=== PATIENT | female | born 1935 | race Caucasian/White ===

== ENCOUNTER → 2018-02-06 | Day surgery (SDC) | payer MEDICARE, OTHER ==
[~2018-02-06] MED LIST: ALBUTEROL SULFATE 2.5 MG/3 ML NEBU. NEB PRN; AMLO10TA4 PO; ASPI81TA50 PO; ATEN50TA PO; ATROPINE 0.5 MG/5 ML DISP.SYRIN. IV PRN; CARV6.252 PO; CHOL100013 PO; CITA20TA9 PO; CRESTOR10 MG PO; DICL100G18 TP; INSU100C4 SQ; INSU100I13 SQ; IV RINGERS SOLUTION,LACTATED 1,000 ML IV SCH; LEVO125T5 PO; LIDOCAINE 2% PF Vial for OR 5 ML VIAL. ONE; NALOXONE 0.4 MG/ML VIAL. IV PRN; NATE60TA PO; ONDANSETRON PF 4 MG/2 ML VIAL. IV PRN; PANT40TA5 PO; PROPOFOL 20 ML IV ONE; SENN-79 PO; diphenhydrAMINE 50 MG/ML VIAL IV PRN
[2018-02-06 11:00] VITALS: BP 160/72
== END | disposition home or self-care (01) ==
LOC: SURG 08:10
PROVIDERS: ATTEND Internal Medicine Gastroenterology
DX: K44.9 Diaphragmatic hernia without obstruction or gangrene (principal); K29.70 Gastritis, unspecified, without bleeding; K22.8 Other specified diseases of esophagus; Z79.82 Long term (current) use of aspirin; Z79.899 Other long term (current) drug therapy; Z79.4 Long term (current) use of insulin; I10 Essential (primary) hypertension; E11.9 Type 2 diabetes mellitus without complications; E03.9 Hypothyroidism, unspecified; Z85.3 Personal history of malignant neoplasm of breast; E78.5 Hyperlipidemia, unspecified; M19.90 Unspecified osteoarthritis, unspecified site; G47.30 Sleep apnea, unspecified; Z90.49 Acquired absence of other specified parts of digestive tract; K21.9 Gastro-esophageal reflux disease without esophagitis; Z90.12 Acquired absence of left breast and nipple; I25.2 Old myocardial infarction
CPT/HCPCS: 43239; 82947; J2704; J7120; 43235; J2001

== ENCOUNTER 2018-07-22 17:07 | Inpatient (IN) | payer MEDICARE, OTHER ==
[~2018-07-22] VITALS: Ht 162.6 cm; Wt 62.2 kg
[~2018-07-22 17:07] MED LIST changes: -ALBUTEROL SULFATE 2.5 MG/3 ML NEBU. NEB PRN; -ATROPINE 0.5 MG/5 ML DISP.SYRIN. IV PRN; -CARV6.252 PO; +CARV6.2541 PO; -IV RINGERS SOLUTION,LACTATED 1,000 ML IV SCH; -LIDOCAINE 2% PF Vial for OR 5 ML VIAL. ONE; -NALOXONE 0.4 MG/ML VIAL. IV PRN; -ONDANSETRON PF 4 MG/2 ML VIAL. IV PRN; -PROPOFOL 20 ML IV ONE; -SENN-79 PO; +SENN-80 PO; -diphenhydrAMINE 50 MG/ML VIAL IV PRN
[2018-07-22] MEDS ORDERED: IV NORMAL SALINE 1,000ML 1,000 ML IV ONE (17:15)
[2018-07-22] MEDS ORDERED: ONDANSETRON PF 4 MG/2 ML VIAL. IV ONE (17:30)
[2018-07-22 17:50] LABS: BASO # 0.1 x10^3/uL (0.0-0.2); BASO % 1 % (0-3); EOS # 0.2 x10^3/uL (0.0-0.7); EOS % 2 % (0-3); HEMATOCRIT 41.9 % (36.0-47.0); HEMOGLOBIN 14.2 g/dL (12.0-15.5); LYMPH # 2.2 x10^3/uL (1.0-4.8); LYMPH % 34 % (24-48); MEAN CORPUSCULAR HEMOGLOBIN 31 pg (25-35); MEAN CORPUSCULAR HGB CONC 34 g/dL (31-37); MEAN CORPUSCULAR VOLUME 91 fL (79-100); MONO # 0.6 x10^3/uL (0.0-1.1); MONO % 10 % (0-9); NEUT # 3.5 x10^3uL (1.8-7.7); NEUT % 54 % (31-73); PLATELET COUNT 198 x10^3/uL (140-400); RED BLOOD COUNT 4.63 x10^6/uL (3.50-5.40); RED CELL DISTRIBUTION WIDTH 13.9 % (11.5-14.5); WHITE BLOOD COUNT 6.6 x10^3/uL (4.0-11.0)
[2018-07-22 17:54] LABS: ALBUMIN 3.4 g/dL (3.4-5.0); ALBUMIN/GLOBULIN RATIO 0.9 (1.0-1.7); CALCIUM 9.4 mg/dL (8.5-10.1); CREATININE 1.4 mg/dL (0.6-1.0); GFR 35.8; POTASSIUM 4.8 mmol/L (3.5-5.1); TOTAL BILIRUBIN 0.4 mg/dL (0.2-1.0); TOTAL PROTEIN 7.3 g/dL (6.4-8.2)
--- NOTE | 2018-07-22 18:28 | PHYS DOC ---
Past History Past Medical History: Anxiety, Depression, Diabetes, High Cholesterol, Hypertension, Hypothyroid Past Surgical History: Appendectomy, Cholecystectomy Alcohol Use: None Drug Use: None Adult General Chief Complaint Chief Complaint: WEAKNESS/GENERALIZED HPI HPI Patient is an 82-year-old female who presents with report of depression, not eating well and concerns regarding medication usage. Family indicates that she has been lying in bed for the most part 20 hours per day. They state that she does not want to get out of bed. Patient admits that she has been praying forgot to take her and she is really angry with got for not taking her. Review of Systems Review of Systems Constitutional: Denies fever or chills [] Respiratory: Denies cough or shortness of breath [] Cardiovascular: No additional information not addressed in HPI [] GI: Denies abdominal pain, nausea, vomiting or diarrhea [] Musculoskeletal: Complains of chronic back pain [] Psychiatric: Positive depression. All other systems were reviewed and found to be within normal limits, except as documented in this note. Current Medications Current Medications Current Medications Medications (Trade) Dose Ordered Sig/Jackie Start Time Stop Time Status Last Admin Dose Admin Ondansetron HCl (Zofran) 4 mg 1X ONCE 07/22/18 17:30 07/22/18 17:31 DC 07/22/18 17:43 4 MG Sodium Chloride 1,000 ml @ 1,000 mls/hr 1X ONCE 07/22/18 17:15 07/22/18 18:14 DC 07/22/18 17:43 1,000 MLS/HR Allergies Allergies Allergies Coded Allergies Type Severity Reaction Last Updated Verified No Known Drug Allergies 01/25/18 No Physical Exam Physical Exam Constitutional: Well developed, well nourished, no acute distress, non-toxic appearance. [] HENT: Normocephalic, atraumatic, bilateral external ears normal, oropharynx moist, no oral exudates, nose normal. [] Eyes: PERRLA, EOMI, conjunctiva normal. [] Neck: Normal range of motion, no tenderness, supple. [] Cardiovascular: Regular rate and rhythm[] Lungs & Thorax: Bilateral breath sounds clear to auscultation [] Abdomen: Bowel sounds normal, soft, no tenderness. [] Skin: Warm, dry, no erythema, no rash. [] Extremities: No tenderness, no cyanosis, no clubbing, ROM intact, no edema. [] Neurologic: Alert and oriented X 3, no focal deficits noted. [] Current Patient Data Vital Signs Vital Signs Date Time Temp Pulse Resp B/P (MAP) Pulse Ox O2 Delivery O2 Flow Rate FiO2 07/22/18 17:16 97.8 98 18 100 Room Air Lab Results Laboratory Tests Test 07/22/18 17:26 White Blood Count 6.6 x10^3/uL (4.0-11.0) Red Blood Count 4.63 x10^6/uL (3.50-5.40) Hemoglobin 14.2 g/dL (12.0-15.5) Hematocrit 41.9 % (36.0-47.0) Mean Corpuscular Volume 91 fL (79-100) Mean Corpuscular Hemoglobin 31 pg (25-35) Mean Corpuscular Hemoglobin Concent 34 g/dL (31-37) Red Cell Distribution Width 13.9 % (11.5-14.5) Platelet Count 198 x10^3/uL (140-400) Neutrophils (%) (Auto) 54 % (31-73) Lymphocytes (%) (Auto) 34 % (24-48) Monocytes (%) (Auto) 10 % (0-9) H Eosinophils (%) (Auto) 2 % (0-3) Basophils (%) (Auto) 1 % (0-3) Neutrophils # (Auto) 3.5 x10^3uL (1.8-7.7) Lymphocytes # (Auto) 2.2 x10^3/uL (1.0-4.8) Monocytes # (Auto) 0.6 x10^3/uL (0.0-1.1) Eosinophils # (Auto) 0.2 x10^3/uL (0.0-0.7) Basophils # (Auto) 0.1 x10^3/uL (0.0-0.2) Sodium Level 140 mmol/L (136-145) Potassium Level 4.8 mmol/L (3.5-5.1) Chloride Level 104 mmol/L (98-107) Carbon Dioxide Level 26 mmol/L (21-32) Anion Gap 10 (6-14) Blood Urea Nitrogen 29 mg/dL (7-20) H Creatinine 1.4 mg/dL (0.6-1.0) H Estimated GFR (Cockcroft-Gault) 35.8 BUN/Creatinine Ratio 21 (6-20) H Glucose Level 77 mg/dL (70-99) Calcium Level 9.4 mg/dL (8.5-10.1) Total Bilirubin 0.4 mg/dL (0.2-1.0) Aspartate Amino Transferase (AST) 34 U/L (15-37) Alanine Aminotransferase (ALT) 33 U/L (14-59) Alkaline Phosphatase 89 U/L (46-116) Total Protein 7.3 g/dL (6.4-8.2) Albumin 3.4 g/dL (3.4-5.0) Albumin/Globulin Ratio 0.9 (1.0-1.7) L EKG EKG [] Radiology/Procedures Radiology/Procedures [] Course & Med Decision Making Course & Med Decision Making Pertinent Labs and Imaging studies reviewed. (See chart for details) There was insufficient urine for lab UA. Urine that was supplied was dipped and demonstrates large leukocytes. Will treat as UTI. Dragon Disclaimer Dragon Disclaimer This electronic medical record was generated, in whole or in part, using a voice recognition dictation system. Departure Departure: Impression: Primary Impression: Dehydration Additional Impressions: UTI (urinary tract infection) Depression Disposition: ADMITTED INPATIENT Admitting Physician: Garfield Hemphill Condition: GOOD Referrals: GARFIELD HEMPIHLL MD (PCP) Problem Qualifiers Additional Impressions: UTI (urinary tract infection) Urinary tract infection type: site unspecified Hematuria presence: without hematuria Qualified Codes: N39.0 - Urinary tract infection, site not specified Depression Depression Type: unspecified Qualified Codes: F32.9 - Major depressive disorder, single episode, unspecified LINDA JAIN Jr. DO Jul 22, 2018 18:28
[2018-07-22] MEDS ORDERED: ACETAMINOPHEN 325 MG TABLET PO PRN (19:15)
[2018-07-22] MEDS ORDERED: ONDANSETRON PF 4 MG/2 ML VIAL. IV PRN (19:15)
[2018-07-22 19:27] LABS: BACTERIA,URINE FEW /HPF (0-FEW); BILIRUBIN,URINE NEG (NEG); CLARITY,URINE HAZY; COLOR,URINE STRAW; GLUCOSE,URINE NEG (NEG); NITRITE,URINE NEG (NEG); RBC,URINE 0 /HPF (0-2); SQUAMOUS EPITHELIAL CELL,UR OCC /LPF; UROBILINOGEN,URINE 0.2 mg/dL (0.2 mg/dL)
[2018-07-22] MEDS ORDERED: CARV6.253 PO (20:58)
[2018-07-22] MEDS ORDERED: TRAM1TAB4 PO (20:58)
[2018-07-22] MEDS ORDERED: DONE10TA7 PO (20:58)
[2018-07-22] MEDS ORDERED: ROSU10TA25 PO (20:58)
[2018-07-22] MEDS ORDERED: NATE60TA2 PO (20:58)
[2018-07-22] MEDS ORDERED: CITA20TA6 PO (20:58)
[2018-07-22] MEDS: IV NORMAL SALINE 1,000ML 1,000 ML IV SCH (21:33)
[2018-07-22 21:56] VITALS: BP 165/52
[2018-07-22] MEDS ORDERED: VITA400C36 PO (23:45)
[2018-07-22] MEDS ORDERED: OCUVITE ADULT1 EAC1 PO (23:45)
[2018-07-22] MEDS ORDERED: MULT-691 PO (23:45)
[2018-07-22] MEDS ORDERED: CALC200T3 PO (23:45)
[2018-07-22] MEDS ORDERED: CYAN10005 PO (23:45)
[2018-07-22] MEDS ORDERED: ASCO10002 PO (23:45)
[2018-07-22] MEDS ORDERED: SIME80TA14 PO (23:45)
[2018-07-22] MEDS ORDERED: OMEG-117 PO (23:45)
[2018-07-22] MEDS ORDERED: FERR325T14 PO (23:45)
[2018-07-23] MEDS: IV NORMAL SALINE 1,000ML 1,000 ML IV SCH ×2 (05:33→15:32)
[2018-07-23 05:41] VITALS: BP 167/76
[2018-07-23 06:47] LABS: BASO % 1 % (0-3); EOS # 0.2 x10^3/uL (0.0-0.7); EOS % 3 % (0-3); HEMATOCRIT 39.5 % (36.0-47.0); HEMOGLOBIN 13.3 g/dL (12.0-15.5); LYMPH % 32 % (24-48); MEAN CORPUSCULAR HEMOGLOBIN 31 pg (25-35); MEAN CORPUSCULAR HGB CONC 34 g/dL (31-37); MEAN CORPUSCULAR VOLUME 91 fL (79-100); MONO # 0.6 x10^3/uL (0.0-1.1); MONO % 10 % (0-9); NEUT # 3.5 x10^3uL (1.8-7.7); NEUT % 54 % (31-73); PLATELET COUNT 178 x10^3/uL (140-400); RED BLOOD COUNT 4.33 x10^6/uL (3.50-5.40); RED CELL DISTRIBUTION WIDTH 14.3 % (11.5-14.5); WHITE BLOOD COUNT 6.4 x10^3/uL (4.0-11.0)
[2018-07-23 06:57] LABS: CALCIUM 8.6 mg/dL (8.5-10.1); CREATININE 1.3 mg/dL (0.6-1.0); POTASSIUM 4.3 mmol/L (3.5-5.1)
[2018-07-23] MEDS ORDERED: CALCIUM CARBONATE 500 MG TAB.CHEW PO PRN (09:00)
[2018-07-23] MEDS ORDERED: SIMETHICONE 80 MG TAB.CHEW PO PRN (09:00)
[2018-07-23] MEDS ORDERED: [UNRECOGNIZED DRUG - OTHER] PO SCH (09:00)
[2018-07-23] MEDS ORDERED: NON FORMULARY ITEM (Carvedilol 1 TAB) PO SCH (09:00)
[2018-07-23] MEDS ORDERED: NON FORMULARY ITEM (Tramadol Hcl/Acetaminophen (Tramadol-Acetaminophn 37.5-325) 1 TAB) PO PRN (09:00)
[2018-07-23 10:51] VITALS: BP 154/77
[2018-07-23] MEDS: REPAGLINIDE 0.5 MG TABLET PO SCH ×2 (11:30→17:22)
[2018-07-23] MEDS: FERROUS SULFATE 325 MG TABLET. PO SCH (13:12)
[2018-07-23] MEDS: CYANOCOBALAMIN (VITAMIN B-12) 1,000 MCG TABLET. PO SCH (13:12)
[2018-07-23] MEDS: CARVEDILOL 6.25 MG TABLET PO SCH ×2 (14:31→21:08)
[2018-07-23 16:21] VITALS: BP 170/68
--- NOTE | 2018-07-23 18:06 | HP ---
ADMIT DATE: 07/22/2018 HISTORY OF PRESENT ILLNESS: The patient is a very pleasant 82-year-old female came in through the Emergency Room with severe depression, not eating well. Concern regarding medication. The patient just lies in bed for 20 hours a day, but she has been having a marked agitation at times. No hallucinations, but is feeling extremely depressed and worn out. PAST MEDICAL HISTORY: She has a history of dementia, hypercholesterolemia, hypertension, type 2 diabetes, incontinence, multiple urinary tract infections, hypothyroidism, anemia. IMMUNIZATIONS: Up-to-date, influenza and pneumococcal. ALLERGIES: No known allergies. MEDICATIONS: Reconcile of her home medications were performed and they were reviewed including Aricept 10 mg daily, ferrous sulfate, Crestor 10, omega 3, carvedilol 6.25, Norvasc, aspirin, tramadol, Celexa 20, calcium, simethicone and Protonix and insulin on a sliding scale. CODE STATUS: She is a full code. SOCIAL HISTORY: Denies smoking, alcohol or drug use. Lives at home with her . REVIEW OF SYSTEMS: The patient denies any recent weight loss, weight gain, although she does look much thinner. She is not eating very well. She is very dehydrated. Denies chest pain, shortness of breath. Denies abdominal pain. Denies any melena, hematochezia, or hematemesis. Just feels very depressed, lethargic, generalized weakness noted throughout. The patient will be admitted for further evaluation and treatment on those medical issues. We will consult with Psychiatry. Her labs are basically unremarkable. Sugars are reasonable in the 130s. Creatinine is slightly elevated. Urine, 5-10 whites and we will go ahead and urine culture pending. Psychiatric consult pending. BOBY WYATT MD DR: JIHAN/sabrina JOB#: [id number] / [id number]
--- NOTE | 2018-07-23 19:12 | PDOC ---
Exam Note: Kristofer Note: Please also refer to the separate dictated note~for this date of service dictated separately.~Patient seen individually. Discussed the patient with Nursing staff reviewed the chart.~Reviewed interim history and current functioning. Reviewed vital signs,~Labs/ Radiology~and current medications noted below. Continue current treatment with the changes noted in the dictated addendum note Assessment: Vital Signs: Vital Signs Date Time Temp Pulse Resp B/P (MAP) Pulse Ox O2 Delivery O2 Flow Rate FiO2 07/23/18 16:21 97.9 69 18 170/68 (102) 97 Room Air I&O Intake and Output 07/23/18 07:00 Intake Total 2160 ml Balance 2160 ml Intake Oral 180 ml IV Total 1980 ml # Voids 4 Labs: Laboratory Tests Test 07/22/18 21:42 07/23/18 06:17 07/23/18 07:21 07/23/18 11:39 Glucose (Fingerstick) 101 mg/dL (70-99) H 136 mg/dL (70-99) H 238 mg/dL (70-99) H White Blood Count 6.4 x10^3/uL (4.0-11.0) Red Blood Count 4.33 x10^6/uL (3.50-5.40) Hemoglobin 13.3 g/dL (12.0-15.5) Hematocrit 39.5 % (36.0-47.0) Mean Corpuscular Volume 91 fL (79-100) Mean Corpuscular Hemoglobin 31 pg (25-35) Mean Corpuscular Hemoglobin Concent 34 g/dL (31-37) Red Cell Distribution Width 14.3 % (11.5-14.5) Platelet Count 178 x10^3/uL (140-400) Neutrophils (%) (Auto) 54 % (31-73) Lymphocytes (%) (Auto) 32 % (24-48) Monocytes (%) (Auto) 10 % (0-9) H Eosinophils (%) (Auto) 3 % (0-3) Basophils (%) (Auto) 1 % (0-3) Neutrophils # (Auto) 3.5 x10^3uL (1.8-7.7) Lymphocytes # (Auto) 2.0 x10^3/uL (1.0-4.8) Monocytes # (Auto) 0.6 x10^3/uL (0.0-1.1) Eosinophils # (Auto) 0.2 x10^3/uL (0.0-0.7) Basophils # (Auto) 0.0 x10^3/uL (0.0-0.2) Sodium Level 143 mmol/L (136-145) Potassium Level 4.3 mmol/L (3.5-5.1) Chloride Level 107 mmol/L (98-107) Carbon Dioxide Level 29 mmol/L (21-32) Anion Gap 7 (6-14) Blood Urea Nitrogen 26 mg/dL (7-20) H Creatinine 1.3 mg/dL (0.6-1.0) H Estimated GFR (Cockcroft-Gault) 39.0 Glucose Level 150 mg/dL (70-99) H Calcium Level 8.6 mg/dL (8.5-10.1) Test 07/23/18 16:54 Glucose (Fingerstick) 250 mg/dL (70-99) H Current Medications: Meds: Current Medications Sodium Chloride 1,000 ml @ 1,000 mls/hr 1X ONCE IV Last administered on at 17:43; Start 07/22/18 at 17:15; Stop 07/22/18 at 18:14; Status DC Ondansetron HCl (Zofran) 4 mg 1X ONCE IV Last administered on 07/22/18at 17:43 ; Start 07/22/18 at 17:30; Stop 07/22/18 at 17:31; Status DC Ondansetron HCl (Zofran) 4 mg PRN Q4HRS PRN IV NAUSEA/VOMITING; Start 07/22/18 at 19:15; Stop 07/23/18 at 19:14 Sodium Chloride 1,000 ml @ 100 mls/hr Q10H IV Last administered on 07/23/18at 15:32; Start 07/22/18 at 19:06; Stop 07/23/18 at 19:05; Status DC Acetaminophen (Tylenol) 650 mg PRN Q4HRS PRN PO FEVER; Start 07/22/18 at 19:15 ; Stop 07/23/18 at 19:14 Calcium Carbonate/ Glycine (Tums) 250 mg BIDAFTMEAL PRN PRN PO GAS / BLOATING; Start 07/23/18 at 09:00 Citalopram Hydrobromide (CeleXA) 20 mg HS PO ; Start 07/23/18 at 21:00 Cyanocobalamin (Vitamin B-12) 1,000 mcg DAILY PO Last administered on at 13:12; Start 07/23/18 at 09:00 Ferrous Sulfate (Feosol) 325 mg DAILY PO Last administered on 07/23/18at 13:12; Start 07/23/18 at 09:00 Insulin Glargine (Lantus) 30 units QHS SQ ; Start 07/23/18 at 21:00 Simethicone (Gas-X) 80 mg PRN BID PRN PO GAS / BLOATING; Start 07/23/18 at 09: 00 Amlodipine Besylate (Norvasc) 10 mg DAILY PO ; Start 07/24/18 at 09:00 Ascorbic Acid (Vitamin C) 1,000 mg DAILY PO ; Start 07/24/18 at 09:00 Aspirin (Children'S Aspirin) 81 mg DAILYWBKFT PO ; Start 07/24/18 at 08:00 Non-Formulary Medication (C,E,Zinc,Copper 24/Om3/Lut/Fely (Ocuvite Adult 50 Plus Softgel)) 1 each DAILY PO ; Start 07/23/18 at 09:00; Stop 07/23/18 at 09:21; Status DC Non-Formulary Medication (Carvedilol ) 1 tab TID PO ; Start 07/23/18 at 09:00; Stop 07/23/18 at 13:35; Status DC Vitamin D (Vitamin D3) 1,000 unit DAILY PO ; Start 07/24/18 at 09:00 Donepezil HCl (Aricept) 10 mg DAILY PO ; Start 07/24/18 at 09:00 Levothyroxine Sodium (Synthroid) 125 mcg DAILY06 PO ; Start 07/24/18 at 06:00 Multivitamins/ Minerals (I-Brandi) 1 tab DAILY PO ; Start 07/24/18 at 09:00 Repaglinide (Prandin) 0.5 mg TIDAC PO Last administered on 07/23/18at 17:22; Start 07/23/18 at 11:30 Fish Oil (Fish Oil) 1,000 mg DAILY PO ; Start 07/24/18 at 09:00 Pantoprazole Sodium (Protonix) 40 mg DAILYAC PO ; Start 07/24/18 at 07:30 Atorvastatin Calcium (Lipitor) 40 mg QHS PO ; Start 07/23/18 at 21:00 Non-Formulary Medication (Tramadol Hcl/ Acetaminophen (Tramadol-Acetaminophn 37.5-325)) 1 tab Q6HRS PRN PO PAIN; Start 07/23/18 at 09:00; Stop 07/23/18 at 09:21; Status DC Vitamin E 400 unit DAILY PO ; Start 07/24/18 at 09:00 Carvedilol (Coreg) 6.25 mg TID PO Last administered on 07/23/18at 14:31; Start 07/23/18 at 14:00 Active Scripts Active Reported Vitamin B-12 (Cyanocobalamin (Vitamin B-12)) 1,000 Mcg Tablet 1 Tab PO DAILY Ocuvite Adult 50 Plus Softgel (C,E,Zinc,Copper 24/Om3/Lut/Fely) 1 Each Capsule 1 Each PO DAILY Centrum Women Tablet (Multivitamin/Iron/Folic Acid) 1 Each Tablet 1 Each PO DAILY Ferrous Sulfate 325 Mg Tablet 1 Tab PO DAILY Tums (Calcium Carbonate) 200 Mg Tab.chew 200 Mg PO BIDAFTMEAL PRN PRN Fish Oil 1,200 mg Softgel ([place]-3/Dha/Epa/Fish Oil) 1 Each Capsule.dr 1 Each PO DAILY Vitamin C (Ascorbic Acid) 1,000 Mg Tablet 1,000 Mg PO DAILY Vitamin E (Vitamin E Mixed) 400 Unit Capsule 400 Unit PO DAILY Simethicone 80 Mg Tab.chew 80 Mg PO BIDACBL PRN Tramadol-Acetaminophn 37.5-325 (Tramadol Hcl/Acetaminophen) 1 Each Tablet 1 Tab PO Q6HRS PRN Carvedilol 6.25 Mg Tablet 1 Tab PO TID Donepezil Hcl 10 Mg Tablet 10 Mg PO DAILY Celexa (Citalopram Hydrobromide) 20 Mg Tablet 1 Tab PO HS Novolog (Insulin Aspart) 100 Unit/1 Ml Cartridge 1 Unit SQ Pantoprazole Sodium 40 Mg Tablet. 1 Tab PO DAILY Levothyroxine Sodium 125 Mcg Tablet 1 Tab PO DAILY Starlix (Nateglinide) 60 Mg Tablet 1 Tab PO TIDAC Crestor (Rosuvastatin Calcium) 10 Mg Tablet 1 Tab PO HS Norvasc (Amlodipine Besylate) 10 Mg Tablet 1 Tab PO DAILY Lantus Solostar (Insulin Glargine,Hum.rec.anlog) 100 Unit/1 Ml Insuln.pen 30 Unit SQ QHS Vitamin D (Cholecalciferol (Vitamin D3)) 1,000 Unit Capsule 1 Cap PO DAILY Aspir-Low (Aspirin) 81 Mg Tablet. 1 Tab PO DAILY I have reviewed the current psychotropics carefully including drug interactions. Risk benefit ratio favors no change other than as noted in my dictated progress note. Diagnosis: Problems: (1) UTI (urinary tract infection) (2) Depression (3) Dehydration BESS MONIQUE MD Jul 23, 2018 19:12
[2018-07-23 19:21] VITALS: BP 164/66
[2018-07-23] MEDS: CITALOPRAM 20 MG TABLET. PO SCH (21:08)
[2018-07-23] MEDS: ATORVASTATIN CALCIUM 20 MG TABLET PO SCH (21:08)
[2018-07-23] MEDS: INSULIN GLARGINE 300 UNITS/3 ML INSULN.PEN. SQ SCH (21:21)
[2018-07-23 23:04] VITALS: BP 183/69
[2018-07-24 05:04] VITALS: BP 184/72
[2018-07-24] MEDS: LEVOTHYROXINE 125 MCG TABLET PO SCH (05:44)
[2018-07-24] MEDS: ASPIRIN 81 MG TAB.CHEW PO SCH (08:01)
[2018-07-24] MEDS: DONEPEZIL HCL 10 MG TABLET PO SCH ×2 (08:01→09:28)
[2018-07-24] MEDS: CYANOCOBALAMIN (VITAMIN B-12) 1,000 MCG TABLET. PO SCH (08:01)
[2018-07-24] MEDS: ASCORBIC ACID 500 MG TABLET PO SCH (08:01)
[2018-07-24] MEDS: OMEGA-3 FATTY ACIDS/FISH OIL 1,000 MG CAPSULE. PO SCH (08:01)
[2018-07-24] MEDS: amLODIPine BESYLATE 10 MG TABLET PO SCH (08:02)
[2018-07-24] MEDS: CHOLECALCIFEROL (VITAMIN D3) 1,000 UNIT TABLET PO SCH (08:02)
[2018-07-24] MEDS: MULTIVITAMIN I-VITE TABLET. PO SCH (08:02)
[2018-07-24] MEDS: FERROUS SULFATE 325 MG TABLET. PO SCH (08:02)
[2018-07-24] MEDS: PANTOPRAZOLE 40 MG TABLET. PO SCH (08:02)
[2018-07-24] MEDS: VITAMIN E. 400 UNIT CAPSULE. PO SCH (08:02)
[2018-07-24] MEDS: CARVEDILOL 6.25 MG TABLET PO SCH ×3 (08:02→20:27)
[2018-07-24] MEDS: REPAGLINIDE 0.5 MG TABLET PO SCH ×3 (08:03→16:22)
[2018-07-24 09:25] VITALS: BP 157/63
[2018-07-24] MEDS: MODAFINIL 100 MG TABLET PO SCH (11:00)
[2018-07-24 15:54] VITALS: BP 148/65
[2018-07-24 19:05] VITALS: BP 161/52
[2018-07-24] MEDS: CITALOPRAM 20 MG TABLET. PO SCH (20:27)
[2018-07-24] MEDS: ATORVASTATIN CALCIUM 20 MG TABLET PO SCH (20:27)
[2018-07-24] MEDS: INSULIN GLARGINE 300 UNITS/3 ML INSULN.PEN. SQ SCH (20:33)
--- NOTE | 2018-07-24 20:36 | CONS ---
DATE OF CONSULTATION: 07/23/2018 PSYCHIATRIC CONSULTATION This late entry 07/23/2018 covers elements not covered in my initial note. The patient was seen individually on the evening of 07/23/2018 in room 123. Discussed with nursing staff, reviewed the chart. IDENTIFYING DATA: The patient is an 82-year-old female referred by Dr. Hemphill on account of short term memory deficits, confusion within the context of her UTI and dehydration. The patient was seen individually on the evening of 07/23/2018. CHIEF COMPLAINT: "Yes, I am getting more confused. If it is because of the infection when will it get better?" HISTORY OF PRESENT ILLNESS: The patient has a history of short term memory deficits and according to records from Dr. Hemphill has a history of dementia. She has also had some appetite disturbance, significant dehydration, worsening confusion, and history of recurrent urinary tract infections. No clear symptoms of bipolar disorder, psychotic symptoms, suicidal or homicidal ideation. The patient has been increasingly depressed, somewhat withdrawn. PAST PSYCHIATRIC HISTORY: As above. MEDICAL HISTORY: Hypercholesterolemia, hypertension, dehydration, type 2 diabetes mellitus, incontinence, recurrent UTIs, hypothyroidism, anemia. DRUG ALLERGIES: Negative. CODE STATUS: FULL CODE. FAMILY HISTORY: Noncontributory. SOCIAL HISTORY: No alcohol or drug abuse history is noted. MENTAL STATUS EXAMINATION: The patient was seen individually. She is oriented to herself, situation, knew it was 2018, knew that the month was June, felt the date was 07/21/2018. She is anxious, restless, lying in bed on IV fluids. Speech is coherent, abstraction fair, computation impaired, short term memory is impaired. Attention span short. Language function intact. Mood and affect somewhat anxious, labile. LABORATORY DATA: Reviewed. IMPRESSION: Major neurocognitive disorder, Alzheimer, vascular with depression; anxiety disorder, unspecified; urinary tract infection; dehydration. RECOMMENDATIONS: From a psychiatric standpoint, the patient is on Provigil 100 mg daily, Aricept 10 mg a day, Celexa 20 mg p.o. at bedtime. BUN and creatinine is improving, but she has been hydrated. From a psychiatric standpoint, I would not recommend any changes yet, but wait to see how she does cognitively once the dehydration is resolved. Given her memory deficits, we could consider adding Namenda, but more than likely her dementia is consequent to vascular etiology and is unlikely to benefit from cholinesterase inhibitors, on Namenda for Alzheimer's. If mood symptoms persist despite resolution of the medical condition, perhaps Celexa could be changed to Cymbalta 20 mg a day increasing gradually to 60 mg a day as tolerated. I will leave these as suggestions for Dr. Hemphill to consider. Dr. Hemphill, thank you for the opportunity to participate in your patient's care. We will follow with you. BESS MONIQUE MD DR: KACEY/nts JOB#: [id number] / [id number]
--- NOTE | 2018-07-24 22:17 | PDOC ---
Exam Note: Kristofer Note: Please also refer to the separate dictated note~for this date of service dictated separately.~Patient seen individually. Discussed the patient with Nursing staff reviewed the chart.~Reviewed interim history and current functioning. Reviewed vital signs,~Labs/ Radiology~and current medications noted below. Continue current treatment with the changes noted in the dictated addendum note Assessment: Vital Signs: Vital Signs Date Time Temp Pulse Resp B/P (MAP) Pulse Ox O2 Delivery O2 Flow Rate FiO2 07/24/18 20:27 68 148/65 07/24/18 20:00 Room Air 07/24/18 19:05 97.9 96 07/24/18 15:54 20 I&O Intake and Output 07/24/18 06:59 Intake Total 450 ml Balance 450 ml Intake Oral 450 ml # Voids 2 Labs: Laboratory Tests Test 07/24/18 08:12 07/24/18 09:15 07/24/18 11:52 07/24/18 17:00 Glucose (Fingerstick) 48 mg/dL (70-99) L 163 mg/dL (70-99) H 237 mg/dL (70-99) H 232 mg/dL (70-99) H Test 07/24/18 20:26 Glucose (Fingerstick) 273 mg/dL (70-99) H Current Medications: Meds: Current Medications Sodium Chloride 1,000 ml @ 1,000 mls/hr 1X ONCE IV Last administered on at 17:43; Start 07/22/18 at 17:15; Stop 07/22/18 at 18:14; Status DC Ondansetron HCl (Zofran) 4 mg 1X ONCE IV Last administered on 07/22/18at 17:43 ; Start 07/22/18 at 17:30; Stop 07/22/18 at 17:31; Status DC Ondansetron HCl (Zofran) 4 mg PRN Q4HRS PRN IV NAUSEA/VOMITING; Start 07/22/18 at 19:15; Stop 07/23/18 at 19:14; Status DC Sodium Chloride 1,000 ml @ 100 mls/hr Q10H IV Last administered on 07/23/18at 15:32; Start 07/22/18 at 19:06; Stop 07/23/18 at 19:05; Status DC Acetaminophen (Tylenol) 650 mg PRN Q4HRS PRN PO FEVER; Start 07/22/18 at 19:15 ; Stop 07/23/18 at 19:14; Status DC Calcium Carbonate/ Glycine (Tums) 250 mg BIDAFTMEAL PRN PRN PO GAS / BLOATING; Start 07/23/18 at 09:00 Citalopram Hydrobromide (CeleXA) 20 mg HS PO Last administered on 07/24/18at 20: 27; Start 07/23/18 at 21:00 Cyanocobalamin (Vitamin B-12) 1,000 mcg DAILY PO Last administered on 08:01; Start 07/23/18 at 09:00 Ferrous Sulfate (Feosol) 325 mg DAILY PO Last administered on 07/24/18at 08:02; Start 07/23/18 at 09:00 Insulin Glargine (Lantus) 30 units QHS SQ Last administered on 07/24/18at 20:33 ; Start 07/23/18 at 21:00 Simethicone (Gas-X) 80 mg PRN BID PRN PO GAS / BLOATING; Start 07/23/18 at 09: 00 Amlodipine Besylate (Norvasc) 10 mg DAILY PO Last administered on 07/24/18 08: 02; Start 07/24/18 at 09:00 Ascorbic Acid (Vitamin C) 1,000 mg DAILY PO Last administered on 07/24/18 08: 01; Start 07/24/18 at 09:00 Aspirin (Children'S Aspirin) 81 mg DAILYWBKFT PO Last administered on at 08:01; Start 07/24/18 at 08:00 Non-Formulary Medication (C,E,Zinc,Copper 24/Om3/Lut/Fely (Ocuvite Adult 50 Plus Softgel)) 1 each DAILY PO ; Start 07/23/18 at 09:00; Stop 07/23/18 at 09:21; Status DC Non-Formulary Medication (Carvedilol ) 1 tab TID PO ; Start 07/23/18 at 09:00; Stop 07/23/18 at 13:35; Status DC Vitamin D (Vitamin D3) 1,000 unit DAILY PO Last administered on 07/24/18at 08:02 ; Start 07/24/18 at 09:00 Donepezil HCl (Aricept) 10 mg DAILY PO Last administered on 07/24/18 09:28; Start 07/24/18 at 09:00 Levothyroxine Sodium (Synthroid) 125 mcg DAILY06 PO Last administered on 05:44; Start 07/24/18 at 06:00 Multivitamins/ Minerals (I-Brandi) 1 tab DAILY PO Last administered on 07/24/18 08:02; Start 07/24/18 at 09:00 Repaglinide (Prandin) 0.5 mg TIDAC PO Last administered on 07/24/18 16:22; Start 07/23/18 at 11:30 Fish Oil (Fish Oil) 1,000 mg DAILY PO Last administered on 07/24/18 08:01; Start 07/24/18 at 09:00 Pantoprazole Sodium (Protonix) 40 mg DAILYAC PO Last administered on 07/24/18 08:02; Start 07/24/18 at 07:30 Atorvastatin Calcium (Lipitor) 40 mg QHS PO Last administered on 07/24/18 20: 27; Start 07/23/18 at 21:00 Non-Formulary Medication (Tramadol Hcl/ Acetaminophen (Tramadol-Acetaminophn 37.5-325)) 1 tab Q6HRS PRN PO PAIN; Start 07/23/18 at 09:00; Stop 07/23/18 at 09:21; Status DC Vitamin E 400 unit DAILY PO Last administered on 07/24/18 08:02; Start at 09:00 Carvedilol (Coreg) 6.25 mg TID PO Last administered on 07/24/18 20:27; Start 07/23/18 at 14:00 Modafinil (Provigil) 100 mg DAILY PO Last administered on 07/24/18 11:00; Start 07/24/18 at 10:30 Active Scripts Active Reported Vitamin B-12 (Cyanocobalamin (Vitamin B-12)) 1,000 Mcg Tablet 1 Tab PO DAILY Ocuvite Adult 50 Plus Softgel (C,E,Zinc,Copper 24/Om3/Lut/Fely) 1 Each Capsule 1 Each PO DAILY Centrum Women Tablet (Multivitamin/Iron/Folic Acid) 1 Each Tablet 1 Each PO DAILY Ferrous Sulfate 325 Mg Tablet 1 Tab PO DAILY Tums (Calcium Carbonate) 200 Mg Tab.chew 200 Mg PO BIDAFTMEAL PRN PRN Fish Oil 1,200 mg Softgel ([place]-3/Dha/Epa/Fish Oil) 1 Each Capsule.dr 1 Each PO DAILY Vitamin C (Ascorbic Acid) 1,000 Mg Tablet 1,000 Mg PO DAILY Vitamin E (Vitamin E Mixed) 400 Unit Capsule 400 Unit PO DAILY Simethicone 80 Mg Tab.chew 80 Mg PO BIDACBL PRN Tramadol-Acetaminophn 37.5-325 (Tramadol Hcl/Acetaminophen) 1 Each Tablet 1 Tab PO Q6HRS PRN Carvedilol 6.25 Mg Tablet 1 Tab PO TID Donepezil Hcl 10 Mg Tablet 10 Mg PO DAILY Celexa (Citalopram Hydrobromide) 20 Mg Tablet 1 Tab PO HS Novolog (Insulin Aspart) 100 Unit/1 Ml Cartridge 1 Unit SQ Pantoprazole Sodium 40 Mg Tablet.dr 1 Tab PO DAILY Levothyroxine Sodium 125 Mcg Tablet 1 Tab PO DAILY Starlix (Nateglinide) 60 Mg Tablet 1 Tab PO TIDAC Crestor (Rosuvastatin Calcium) 10 Mg Tablet 1 Tab PO HS Norvasc (Amlodipine Besylate) 10 Mg Tablet 1 Tab PO DAILY Lantus Solostar (Insulin Glargine,Hum.rec.anlog) 100 Unit/1 Ml Insuln.pen 30 Unit SQ QHS Vitamin D (Cholecalciferol (Vitamin D3)) 1,000 Unit Capsule 1 Cap PO DAILY Aspir-Low (Aspirin) 81 Mg Tablet. 1 Tab PO DAILY I have reviewed the current psychotropics carefully including drug interactions. Risk benefit ratio favors no change other than as noted in my dictated progress note. Diagnosis: Problems: (1) Dehydration (2) Depression (3) UTI (urinary tract infection) BESS MONIQUE MD Jul 24, 2018 22:16
[2018-07-24 22:45] VITALS: BP 179/71
--- NOTE | 2018-07-24 23:04 | PN ---
DATE: SUBJECTIVE: An 82-year-old female in with change in mental status, has been having extreme lethargy, depression and the like. As a result of this, the patient has been given IV fluids. It looks like she was somewhat dehydrated, may have a urinary tract infection along with her change in mental status. The patient begin receiving IV fluids, adjusting her blood sugar medications, seems to be doing a little better today, he is markedly improved. Dr. Vera has reviewed the patient, made timely suggestions about her care and we are making adjustments on her as indicated. PHYSICAL EXAMINATION: VITAL SIGNS: Otherwise, the patient's blood pressure is 148/65, respiratory rate 20, pulse 68, afebrile. GENERAL: The patient is alert and oriented. LUNGS: Diminished throughout, poor movement of air. CARDIOVASCULAR: Regular sinus rhythm. ABDOMEN: The patient's abdomen is soft, nontender, no rebounding or guarding. Positive bowel sounds. NEUROLOGIC: The patient is alert, slightly confused, but that is baseline for this patient. Continue to monitor her accordingly and make further evaluation. Continue with PT, OT. IMPRESSION: Change in mental status, acute encephalopathy, possibly metabolic, dehydration. PLAN: Make further evaluation on her as indicated and we will PT, OT that helps her keep mobilized and make further evaluation on her as indicated. BOBY WYATT MD DR: JIHAN/sabrina JOB#: [id number] / [id number]
[2018-07-25 05:06] VITALS: BP 157/76
[2018-07-25] MEDS: LEVOTHYROXINE 125 MCG TABLET PO SCH (05:34)
[2018-07-25] MEDS: DONEPEZIL HCL 10 MG TABLET PO SCH (07:00)
[2018-07-25] MEDS: amLODIPine BESYLATE 10 MG TABLET PO SCH (07:00)
[2018-07-25] MEDS: MULTIVITAMIN I-VITE TABLET. PO SCH (07:00)
[2018-07-25] MEDS: ASCORBIC ACID 500 MG TABLET PO SCH (07:00)
[2018-07-25] MEDS: CYANOCOBALAMIN (VITAMIN B-12) 1,000 MCG TABLET. PO SCH (07:01)
[2018-07-25] MEDS: CARVEDILOL 6.25 MG TABLET PO SCH (07:01)
[2018-07-25] MEDS: PANTOPRAZOLE 40 MG TABLET. PO SCH (07:01)
[2018-07-25] MEDS: ASPIRIN 81 MG TAB.CHEW PO SCH (07:01)
[2018-07-25] MEDS: OMEGA-3 FATTY ACIDS/FISH OIL 1,000 MG CAPSULE. PO SCH (07:01)
[2018-07-25] MEDS: FERROUS SULFATE 325 MG TABLET. PO SCH (07:01)
[2018-07-25] MEDS: CHOLECALCIFEROL (VITAMIN D3) 1,000 UNIT TABLET PO SCH (07:02)
[2018-07-25] MEDS: REPAGLINIDE 0.5 MG TABLET PO SCH ×2 (07:02→11:30)
[2018-07-25] MEDS: VITAMIN E. 400 UNIT CAPSULE. PO SCH (07:02)
[2018-07-25] MEDS: MODAFINIL 100 MG TABLET PO SCH (07:02)
[2018-07-25] MEDS ORDERED: IV NORMAL SALINE 1,000ML 1,000 ML IV SCH (08:15)
[2018-07-25 09:58] VITALS: BP 128/61
[2018-07-25 11:02] LABS: BASO % 0 % (0-3); EOS # 0.3 x10^3/uL (0.0-0.7); EOS % 3 % (0-3); HEMOGLOBIN 13.9 g/dL (12.0-15.5); LYMPH # 1.8 x10^3/uL (1.0-4.8); LYMPH % 16 % (24-48); MEAN CORPUSCULAR HEMOGLOBIN 30 pg (25-35); MEAN CORPUSCULAR HGB CONC 33 g/dL (31-37); MEAN CORPUSCULAR VOLUME 92 fL (79-100); MONO # 1.1 x10^3/uL (0.0-1.1); MONO % 10 % (0-9); NEUT % 72 % (31-73); PLATELET COUNT 211 x10^3/uL (140-400); RED BLOOD COUNT 4.57 x10^6/uL (3.50-5.40); RED CELL DISTRIBUTION WIDTH 14.4 % (11.5-14.5); WHITE BLOOD COUNT 11.1 x10^3/uL (4.0-11.0)
[2018-07-25] MEDS ORDERED: MODA100T2 PO (11:08)
[2018-07-25 11:15] LABS: ALBUMIN 3.3 g/dL (3.4-5.0); ALBUMIN/GLOBULIN RATIO 0.9 (1.0-1.7); CALCIUM 8.5 mg/dL (8.5-10.1); CREATININE 1.4 mg/dL (0.6-1.0); GFR 35.8; TOTAL BILIRUBIN 0.4 mg/dL (0.2-1.0)
--- NOTE | 2018-07-25 22:04 | PN ---
DATE: 07/24/2018 PSYCHIATRIC PROGRESS NOTE This late entry 07/24/2018 covers elements not covered in my initial note. SUBJECTIVE: I met with the patient in her room and discussed with nursing staff. Overall, she is doing better, less confused, little more oriented, remembered what we discussed at the visit the previous day. REVIEW OF SYSTEMS: Still complains of tiredness. No CV, , pulmonary system symptoms on review. MENTAL STATUS EXAM: Oriented to herself and situation. Speech has some latency, coherent. Abstraction fair, computation impaired, language function intact. Mood and affect is improved, short term memory is impaired. IMPRESSION: Unchanged from initial note. PLAN: No change from initial note. MAN Kesha MONIQUE MD DR: KACEY/sabrina JOB#: [id number] / [id number]
--- NOTE | 2018-08-15 12:31 | DS ---
DATE OF DISCHARGE: 07/25/2018 HOSPITAL COURSE: An 82-year-old female in was admitted severe depression, not eating well, became increasingly dehydrated. The patient was brought in and monitored. She was given IV fluids to a significant degree to help her get rehydrated. The patient's labs were pretty much nonconclusive. She is a diabetic and her blood sugars were in the low 200s. Her urine was evaluated and a culture was completed on her, which was unremarkable. The patient made excellent Recovery. She was seen by Dr. Vera, geriatric psychiatrist. He made timely suggestions about her care and she made good progress and was discharged home. IMPRESSION: Change in mental status, dehydration, type 2 diabetes, poorly controlled. The patient will be followed up as an outpatient and make further evaluation on her as indicated. At that time, she will be on a diabetic diet, decreased activity, and make further evaluation as indicated. BOBY WYATT MD DR: JIHAN/sabrina JOB#: [id number] / [id number]
== END 2018-07-25 14:31 | disposition home health service (06) | DRG 689 ==
LOC: ER 17:07 → 1 SOUTH 19:08
PROVIDERS: ADMIT Family Medicine; ATTEND Family Medicine
DX: N39.0 Urinary tract infection, site not specified (principal); G93.41 Metabolic encephalopathy; E86.0 Dehydration; F32.9 Major depressive disorder, single episode, unspecified; G30.9 Alzheimer's disease, unspecified; F41.9 Anxiety disorder, unspecified; E03.9 Hypothyroidism, unspecified; E11.9 Type 2 diabetes mellitus without complications; E78.00 Pure hypercholesterolemia, unspecified; F01.50 Vascular dementia, unspecified severity, without behavioral disturbance, psychotic disturbance, mood disturbance, and anxiety; F02.80 Dementia in other diseases classified elsewhere, unspecified severity, without behavioral disturbance, psychotic disturbance, mood disturbance, and anxiety; I10 Essential (primary) hypertension; Z87.440 Personal history of urinary (tract) infections; Z90.49 Acquired absence of other specified parts of digestive tract; D64.9 Anemia, unspecified
CPT/HCPCS: 36415; 80048; 80053; 81001; 82607; 82947; 84443; 85025; 87086; 96361; 96374; J1815; J2405; 97110; 97530; 97535; 99285-25; J7030

== ENCOUNTER 2019-06-17 13:05 | Inpatient (IN) | payer MEDICARE, OTHER ==
[~2019-06-17] VITALS: Ht 162.6 cm; Wt 56.0 kg
[~2019-06-17 13:05] MED LIST changes: +ASCO10002 PO; +CALC200T3 PO; +CARV6.253 PO; +CITA20TA6 PO; +CYAN-25 PO; +DONE10TA7 PO; +FERR325T14 PO; +MODA100T2 PO; +MULT-691 PO; +NATE60TA2 PO; +OCUVITE ADULT1 EAC1 PO; +OMEG-117 PO; +ROSU10TA26 PO; +SIME80TA14 PO; +TRAM1TAB4 PO; +VITA-8 PO
[2019-06-17 14:11] LABS: BASO % 1 % (0-3); EOS # 0.1 x10^3/uL (0.0-0.7); EOS % 3 % (0-3); HEMATOCRIT 43.2 % (36.0-47.0); HEMOGLOBIN 14.1 g/dL (12.0-15.5); LYMPH # 1.1 x10^3/uL (1.0-4.8); LYMPH % 27 % (24-48); MEAN CORPUSCULAR HEMOGLOBIN 31 pg (25-35); MEAN CORPUSCULAR HGB CONC 33 g/dL (31-37); MEAN CORPUSCULAR VOLUME 95 fL (79-100); MONO # 0.5 x10^3/uL (0.0-1.1); MONO % 11 % (0-9); NEUT # 2.5 x10^3uL (1.8-7.7); NEUT % 58 % (31-73); PLATELET COUNT 184 x10^3/uL (140-400); RED BLOOD COUNT 4.56 x10^6/uL (3.50-5.40); RED CELL DISTRIBUTION WIDTH 13.5 % (11.5-14.5); WHITE BLOOD COUNT 4.3 x10^3/uL (4.0-11.0)
[2019-06-17 14:17] LABS: CALCIUM 8.5 mg/dL (8.5-10.1); CREATININE 1.4 mg/dL (0.6-1.0); GFR 35.7; POTASSIUM 4.7 mmol/L (3.5-5.1)
--- NOTE | 2019-06-17 14:19 | PHYS DOC ---
Past History Past Medical History: Dementia, Depression, Diabetes, GERD, High Cholesterol, Hypertension, Hypothyroid Past Surgical History: Appendectomy, Cholecystectomy Alcohol Use: None Drug Use: None Adult General Chief Complaint Chief Complaint: PSYCH EVALUATION HPI HPI 83-year-old female presents for medical clearance of the result admission. She was sent here by her primary care physician. She has been acting more depressed and down lately she has been talking about wanting to and be more emotional. Family is concerned she is getting depressed. Her PCP agreed and advised that they come here. Patient denies any pain or medical complaints to me. No recent history of fever or chills. Review of Systems Review of Systems Constitutional: Denies fever or chills [] Eyes: Denies change in visual acuity, redness, or eye pain [] HENT: Denies nasal congestion or sore throat [] Respiratory: Denies cough or shortness of breath [] Cardiovascular: No additional information not addressed in HPI [] GI: Denies abdominal pain, nausea, vomiting, bloody stools or diarrhea [] : Denies dysuria or hematuria [] Musculoskeletal: Denies back pain or joint pain [] Integument: Denies rash or skin lesions [] Neurologic: Denies headache, focal weakness or sensory changes [] Endocrine: Denies polyuria or polydipsia [] All other systems were reviewed and found to be within normal limits, except as documented in this note. Allergies Allergies Allergies Coded Allergies Type Severity Reaction Last Updated Verified No Known Drug Allergies 01/25/18 No Physical Exam Physical Exam Constitutional: Well developed, well nourished, no acute distress, non-toxic appearance. [] HENT: Normocephalic, atraumatic, bilateral external ears normal, oropharynx moist, no oral exudates, nose normal. [] Eyes: PERRLA, EOMI, conjunctiva normal, no discharge. [] Neck: Normal range of motion, no tenderness, supple, no stridor. [] Cardiovascular:Heart rate regular rhythm, no murmur [] Lungs & Thorax: Bilateral breath sounds clear to auscultation [] Abdomen: Bowel sounds normal, soft, no tenderness, no masses, no pulsatile masses. [] Skin: Warm, dry, no erythema, no rash. [] Back: No tenderness, no CVA tenderness. [] Extremities: No tenderness, no cyanosis, no clubbing, ROM intact, no edema. [] Neurologic: Alert and oriented X 3, normal motor function, normal sensory function, no focal deficits noted. [] Psychologic: Affect normal, judgement normal, mood depressed. [] Current Patient Data Vital Signs Vital Signs Date Time Temp Pulse Resp B/P (MAP) Pulse Ox O2 Delivery O2 Flow Rate FiO2 06/17/19 13:27 66 18 97 Room Air Lab Results Laboratory Tests Test 06/17/19 13:50 White Blood Count 4.3 x10^3/uL (4.0-11.0) Red Blood Count 4.56 x10^6/uL (3.50-5.40) Hemoglobin 14.1 g/dL (12.0-15.5) Hematocrit 43.2 % (36.0-47.0) Mean Corpuscular Volume 95 fL (79-100) Mean Corpuscular Hemoglobin 31 pg (25-35) Mean Corpuscular Hemoglobin Concent 33 g/dL (31-37) Red Cell Distribution Width 13.5 % (11.5-14.5) Platelet Count 184 x10^3/uL (140-400) Neutrophils (%) (Auto) 58 % (31-73) Lymphocytes (%) (Auto) 27 % (24-48) Monocytes (%) (Auto) 11 % (0-9) H Eosinophils (%) (Auto) 3 % (0-3) Basophils (%) (Auto) 1 % (0-3) Neutrophils # (Auto) 2.5 x10^3uL (1.8-7.7) Lymphocytes # (Auto) 1.1 x10^3/uL (1.0-4.8) Monocytes # (Auto) 0.5 x10^3/uL (0.0-1.1) Eosinophils # (Auto) 0.1 x10^3/uL (0.0-0.7) Basophils # (Auto) 0.0 x10^3/uL (0.0-0.2) EKG EKG Sinus rhythm, rate 57, leftward axis, no ST elevations or depressions.[] Radiology/Procedures Radiology/Procedures [] Course & Med Decision Making Course & Med Decision Making Pertinent Labs and Imaging studies reviewed. (See chart for details) Patient's labs are unremarkable. Her psychiatric screen has concluded voluntary admission would be to her benefit. We are trying to get her placed at this time. He is medically stable for behavioral health admission [] Dragon Disclaimer Dragon Disclaimer This electronic medical record was generated, in whole or in part, using a voice recognition dictation system. Departure Departure: Impression: Primary Impression: Medical clearance for psychiatric admission Disposition: ADMITTED INPATIENT Condition: STABLE Referrals: BOBY WYATT MD (PCP) VELIA GENAO DO Jun 17, 2019 14:19
[2019-06-17 14:23] LABS: ALBUMIN 3.2 g/dL (3.4-5.0); MAGNESIUM 1.9 mg/dL (1.8-2.4); TOTAL BILIRUBIN 0.7 mg/dL (0.2-1.0); TOTAL PROTEIN 6.4 g/dL (6.4-8.2)
[2019-06-17 15:32] LABS: BACTERIA,URINE 0 /HPF (0-FEW); BILIRUBIN,URINE NEG (NEG); CLARITY,URINE HAZY; COLOR,URINE YELLOW; GLUCOSE,URINE 100 mg/dL (NEG); NITRITE,URINE NEG (NEG); RBC,URINE RARE /HPF (0-2); SQUAMOUS EPITHELIAL CELL,UR OCC /LPF; UROBILINOGEN,URINE 0.2 mg/dL (0.2 mg/dL)
--- NOTE | 2019-06-17 16:16 | EKG ---
[address] [address] Test Date: 2019-06-17 Test Time: 13:42:39 Pat Name: POLO PARRA Department: Room: Gender: F Admissions Nurse: : [id number] Requested By: VELIA GENAO Order Number: [id number] Reading MD: Measurements Intervals [place] Rate: 57 P: 64 MA: 146 QRS: -40 QRSD: 156 T: 112 QT: 482 QTc: 473 Interpretive Statements SINUS RHYTHM ABNORMAL LEFT AXIS DEVIATION NON SPECIFIC INTRAVENTRICULAR BLOCK QRS(T) CONTOUR ABNORMALITY CONSIDER ANTEROSEPTAL MYOCARDIAL DAMAGE ABNORMAL ECG RI6.01 No previous ECG available for comparison
[2019-06-17] MEDS: levoFLOXacin 500 MG TABLET PO ONE ×2 (19:15→20:04)
[2019-06-17 19:31] LABS: BARBITURATES NEG (NEG); BENZODIAZEPINES NEG (NEG); CANNABINOIDS NEG (NEG); COCAINE NEG (NEG); METHADONE NEG (NEG); OPIATES NEG (NEG); PHENCYCLIDINE NEG (NEG)
[2019-06-17 19:39] LABS: AMPHETAMINE/METHAMPHETAMINE NEG (NEG)
--- NOTE | 2019-06-17 20:34 | RAD ---
Exam: CT head and cervical spine INDICATION: Mental status change TECHNIQUE: Sequential axial images through the head and cervical spine were obtained without the administration of IV contrast. Comparisons: None FINDINGS: Head: No focal parenchymal lesion or hemorrhage is identified. There is no midline shift or sulcal effacement. Craniotomy changes at the left posterior cranial fossa. There is hypodensity in the left cerebellum which may represent either encephalomalacia or area of infarct. There is patchy hypodensity in the periventricular white matter. No acute vascular territory infarction is identified. Carlson-white distinction is preserved. The ventricular system is within normal limits without compression hydrocephalus. The basal cisterns are well maintained. The visualized portions of the paranasal sinuses and mastoid air cells are well-pneumatized. No acute fractures. Cervical spine: Vertebral body heights and alignment are well-maintained. Fracture to the cervical spine is not identified. Multilevel spondylotic change in cervical spine with degenerative disease greatest at C4-C5, C5-C6 and C6-C7. There is a large dural calcification within the cervical spine at the C5 level. Visualized paraspinal soft tissues are unremarkable. IMPRESSION: 1. 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 Underlying subacute or acute ischemia is difficult to exclude after concerns for ischemia MRI would better evaluate. 2. Negative CT C-spine for acute traumatic injury. Exposure: One or more of the following in the visualized dose reduction techniques were utilized for this examination: 1. Automated exposure control 2. Adjustment of the MA and/or KV according to patient size Use of iterative of reconstructive technique Electronically signed by: Kath Ricci MD (06/17/2019 8:31 PM) [facility]
--- NOTE | 2019-06-17 20:42 | RAD ---
Exam: Chest one view INDICATION: Cough TECHNIQUE: Frontal view of the chest Comparisons: None FINDINGS: The cardiomediastinal silhouette and pulmonary vessels are within normal limits. The lung and pleural spaces are clear. IMPRESSION: No acute cardiopulmonary process. Electronically signed by: Kath Ricci MD (06/17/2019 8:39 PM) [facility]
[2019-06-17] MEDS ORDERED: MEMA10TA PO (21:16)
[2019-06-17] MEDS ORDERED: DICL50TA4 PO (21:16)
[2019-06-17] MEDS ORDERED: LIPA1CAP4 PO (21:16)
[2019-06-17] MEDS ORDERED: CALCIUM CARBONATE 500 MG TAB.CHEW PO PRN (21:30)
[2019-06-17] MEDS ORDERED: SIMETHICONE 80 MG TAB.CHEW PO PRN (21:30)
[2019-06-17 21:40] VITALS: BP 136/75
[2019-06-17] MEDS ORDERED: traMADol 50 MG TABLET PO PRN (21:45)
[2019-06-17] MEDS ORDERED: METHYL SALICYLATE/MENTHOL TOPICAL OINTMENT 57GM TUBE. TP PRN (21:45)
[2019-06-17] MEDS ORDERED: ACETAMINOPHEN 325 MG TABLET PO PRN ×2 (21:45→22:00)
[2019-06-17] MEDS ORDERED: MAG HYDROX/AL HYDROX/SIMETH 30 ML ORAL.SUSP PO PRN (21:45)
[2019-06-17] MEDS ORDERED: MAGNESIUM HYDROXIDE 2,400 MG/30 ML ORAL.SUSP. PO PRN (21:45)
[2019-06-17] MEDS ORDERED: DICLOFENAC SODIUM 25 MG TABLET.DR PO PRN (21:45)
[2019-06-17] MEDS: MEMANTINE 5 MG TABLET. PO SCH (22:38)
[2019-06-17] MEDS: INSULIN GLARGINE SYRINGE. SQ SCH (22:40)
[2019-06-18] MEDS: LEVOTHYROXINE 125 MCG TABLET PO SCH (05:16)
[2019-06-18 06:04] VITALS: BP 123/71
[2019-06-18] MEDS: LIPASE/PROTEAS/AMYLAS 10/32/42 CAPSULE.DR. PO SCH ×3 (09:18→16:07)
[2019-06-18] MEDS: ASPIRIN ENTERIC COATED 81 MG TABLET.DR. PO SCH (09:18)
[2019-06-18] MEDS: VITAMIN E. 400 UNIT CAPSULE. PO SCH (09:18)
[2019-06-18] MEDS: MULTIVITAMIN I-VITE TABLET. PO SCH (09:18)
[2019-06-18] MEDS: PANTOPRAZOLE 40 MG TABLET. PO SCH (09:18)
[2019-06-18] MEDS: REPAGLINIDE 1 MG TABLET PO SCH (09:19)
[2019-06-18] MEDS: CARVEDILOL 6.25 MG TABLET PO SCH ×3 (09:19→20:31)
[2019-06-18] MEDS: amLODIPine BESYLATE 10 MG TABLET PO SCH (09:19)
[2019-06-18] MEDS: MEMANTINE 5 MG TABLET. PO SCH ×2 (09:20→20:31)
[2019-06-18] MEDS: DONEPEZIL HCL 10 MG TABLET PO SCH (09:20)
[2019-06-18] MEDS: FERROUS SULFATE 325 MG TABLET. PO SCH (09:20)
[2019-06-18] MEDS: PRENATAL MULTIVITAMIN TABLET. PO SCH (09:20)
[2019-06-18] MEDS: OMEGA-3 FATTY ACIDS/FISH OIL 1,000 MG CAPSULE. PO SCH (09:20)
[2019-06-18] MEDS: CHOLECALCIFEROL (VITAMIN D3) 1,000 UNIT TABLET PO SCH (09:20)
[2019-06-18] MEDS: CYANOCOBALAMIN (VITAMIN B-12) 1,000 MCG TABLET. PO SCH (09:20)
[2019-06-18] MEDS ORDERED: DEXTROSE 50% 25 GM / 50ML DISP.SYRIN. IV PRN (13:00)
[2019-06-18] MEDS: INSULIN LISPRO 300 UNITS/3 ML VIAL. SQ SCH ×2 (13:18→17:22)
[2019-06-18 13:53] LABS: THYROID STIM HORMONE (TSH) 2.234 uIU/mL (0.358-3.740)
[2019-06-18 16:11] VITALS: BP 121/54
[2019-06-18 17:07] LABS: THYROXINE 6.3 ug/dL (4.5-12.0)
[2019-06-18] MEDS: ATORVASTATIN CALCIUM 20 MG TABLET PO SCH (20:31)
[2019-06-18] MEDS: INSULIN GLARGINE SYRINGE. SQ SCH (20:38)
--- NOTE | 2019-06-18 20:39 | CONS ---
DATE OF CONSULTATION: REASON FOR CONSULTATION: Medical management. HISTORY OF PRESENT ILLNESS: The patient is an 83-year-old female patient who lives at home and was seen in the Emergency Room for evaluation and was [facility] on account of increased agitation, aggression, increased depression, not engaging in meaningful activities, withdrawn, with labile mood, passive suicidal statements, all this in a background of major neurocognitive disorder, vascular dementia, Alzheimer with depression and behavioral disorder or disturbances. PAST MEDICAL HISTORY: Significant for hypertension, hyperlipidemia, hypothyroidism and diabetes mellitus. PAST SURGICAL HISTORY: Significant for left mastectomy as well as cholecystectomy. PAST PSYCHIATRIC HISTORY: Significant for dementia with depression. ALLERGIES: She has no known drug allergies. MEDICATIONS: She is currently on following medications: She is on Aricept 10 mg daily, ferrous sulfate 325 mg once a day, Crestor 10 mg at bedtime, omega-3 fatty acids 1000 mg once a day, carvedilol 6.25 mg twice a day, amlodipine 10 mg once a day, aspirin 81 mg once a day, diclofenac sodium 50 mg 3 times a day as needed. She is on tramadol/acetaminophen 1 tablet 3 times a day as needed, citalopram hydrobromide for Celexa 20 mg at bedtime. She is on Namenda 5 mg twice a day, calcium carbonate 1000 mg after meals. She is also on simethicone 80 mg twice a day as needed. She is on Creon 3000 unit capsule 3 times a day with meals, Protonix 40 mg once a day, NovoLog insulin before meals and Lantus SoloSTAR 20 units at bedtime. She is also on Starlix 60 mg daily, levothyroxine sodium 125 mcg once a day, cyanocobalamin 1000 mcg 1 tablet daily. She is on cholecalciferol at 1000 International Unit once a day, vitamin E 400 units p.o. daily, multivitamin with mineral 1 tablet once a day, Ocuvite Adult 50+ soft gel 1 tablet once a day. REVIEW OF SYSTEMS: As per history of present illness. FAMILY HISTORY: Noncontributory. SOCIAL HISTORY: She is and lives with her . She has 2 sons and 1 daughter. She never smoked, does not drink alcohol. 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 PHYSICAL EXAMINATION: GENERAL: When I examined her, she was sitting at the edge of the bed comfortably, in no apparent respiratory distress. She was somewhat pale, but no jaundice, cyanosis, lymphadenopathy or thyromegaly. No jugular venous distention. No lower limb edema. VITAL SIGNS: Her heart rate was 64, blood pressure was 123/71, temperature was 97.1, respiratory rate was 16, and oxygen saturation was 98%. HEAD, EYES, EARS, NOSE AND THROAT: Showed normocephalic, atraumatic. NECK: Supple. HEART: Showed normal first and second heart sounds. No gallop or murmur. CHEST: Clear to auscultation. No crepitation or rhonchi. ABDOMEN: Scaphoid, soft, nontender. NEUROLOGIC: She is awake, alert, responding appropriately. All cranial nerves intact. She moves extremities without difficulty. She ambulates with a walker. LABORATORY DATA: Her lab work showed that her white cell count was 4300, hemoglobin 14, hematocrit 43, MCV 95 and platelet count of 184,000. Her chemistry showed serum sodium 143, potassium 4.7, chloride 105, bicarbonate 30, anion gap of 8, BUN 28, creatinine 1.4, estimated GFR was 36 mL per minute. Her glucose was 186, calcium was 8.5, magnesium was 1.9. Total bilirubin, AST, ALT, alkaline phosphatase are normal. Total protein 6.4, albumin 3.2. Urinalysis was essentially unremarkable and was negative and toxic screen was negative. IMPRESSION: In summary, this is an 83-year-old female patient who was admitted on account of increased agitation, aggression, increased depression, not engaging in meaningful activities, withdrawn, markedly labile mood and passive suicidal statements, all this in a background of major neurocognitive disorder, vascular dementia, Alzheimer, depression and behavioral disorder. Medically, she has multiple medical problems including type 2 diabetes mellitus that seemed to be suboptimally controlled, hypertension, hyperlipidemia and hypothyroidism. All in all, the patient seems to be medically stable. She does have slightly impaired kidney function and she is on diclofenac 50 mg 3 times a day, which to me seems to be excessive and probably not a good thing in the long run. I would recommend to discontinue this diclofenac altogether if at all possible. Thank you, Dr. Vera, for allowing me to participate in the care of this patient. HOSEA ECHEVERRIA MD DR: TJ/sabrina JOB#: [id number] / [id number]
--- NOTE | 2019-06-18 20:51 | PDOC ---
Exam Note: Kristofer Note: Please also refer to the separate dictated note~for this date of service dictated separately. Discussed the patient with Nursing staff reviewed the chart.~Reviewed interim history and current functioning. Reviewed vital signs,~Labs/ Radiology~and current medications noted below. Continue current treatment with the changes noted in the dictated addendum note Assessment: Vital Signs/I&O: Vital Signs Date Time Temp Pulse Resp B/P (MAP) Pulse Ox O2 Delivery O2 Flow Rate FiO2 06/18/19 20:31 68 121/54 06/18/19 16:11 98.1 16 98 Room Air I & O 06/17/19 06/17/19 06/18/19 15:00 23:00 07:00 Intake Total 0 ml Balance 0 ml Labs: Laboratory Tests Test 06/17/19 22:04 06/18/19 07:27 06/18/19 11:32 06/18/19 16:54 Glucose (Fingerstick) 409 mg/dL (70-99) H 107 mg/dL (70-99) H 346 mg/dL (70-99) H 161 mg/dL (70-99) H Test 06/18/19 19:13 Glucose (Fingerstick) 119 mg/dL (70-99) H Current Medications: Meds: Current Medications Medications (Trade) Dose Ordered Sig/Jackie Route PRN Reason Start Time Stop Time Status Last Admin Dose Admin Amlodipine Besylate (Norvasc) 10 mg DAILY PO 06/18/19 09:00 06/18/19 09:19 Aspirin (Aspirin Enteric Coated) 81 mg DAILY PO 06/18/19 09:00 06/18/19 09:18 Carvedilol (Coreg) 6.25 mg TID PO 06/18/19 09:00 06/18/19 20:31 Citalopram Hydrobromide (CeleXA) 20 mg HS PO 06/18/19 21:00 06/18/19 20:37 Cyanocobalamin (Vitamin B-12) 1,000 mcg DAILY PO 06/18/19 09:00 06/18/19 09:20 Donepezil HCl (Aricept) 10 mg DAILY PO 06/18/19 09:00 06/18/19 09:20 Ferrous Sulfate (Feosol) 325 mg DAILY PO 06/18/19 09:00 06/18/19 09:20 Levothyroxine Sodium (Synthroid) 125 mcg DAILY06 PO 06/18/19 06:00 06/18/19 05:16 Memantine (Namenda) 5 mg BID PO 06/17/19 21:00 06/18/19 20:31 Pantoprazole Sodium (Protonix) 40 mg DAILYAC PO 06/18/19 07:30 06/18/19 09:18 Multivitamins/ Minerals (I-Brandi) 1 tab DAILY PO 06/18/19 09:00 06/18/19 09:18 Vitamin D (Vitamin D3) 1,000 unit DAILY PO 06/18/19 09:00 06/18/19 09:20 Insulin Glargine (Lantus Syringe) 20 unit QHS SQ 06/17/19 22:00 06/18/19 20:38 Amylase/Lipase/ Protease (Zenpep 10,000) 1 cap TIDBFRMEAL PO 06/18/19 07:30 06/18/19 16:07 Multivit/ Folic Acid/Iron (Multivitamin ) 1 tab DAILY PO 06/18/19 09:00 06/18/19 09:20 Repaglinide (Prandin) 0.5 mg DAILYAC PO 06/18/19 07:30 06/18/19 09:19 Fish Oil (Fish Oil) 1,000 mg DAILY PO 06/18/19 09:00 06/18/19 09:20 Atorvastatin Calcium (Lipitor) 40 mg QHS PO 06/18/19 21:00 06/18/19 20:31 Vitamin E (Vitamin E.) 400 unit DAILY PO 06/18/19 09:00 06/18/19 09:18 Insulin Human Lispro (HumaLOG) 0-9 UNITS TIDWMEALS SQ 06/18/19 13:05 06/18/19 17:22 I have reviewed the current psychotropics carefully including drug interactions. Risk benefit ratio favors no change other than as noted in my dictated progress note. Diagnosis: Problems: (1) Anxiety disorder (2) Dementia, vascular, with delusions (3) Dementia, vascular, with depression (4) Medical clearance for psychiatric admission (5) Dementia in Alzheimer's disease with delirium (6) Dementia in Alzheimer's disease with delusions (7) Impulse control disorder BESS MONIQUE MD Jun 18, 2019 20:51
[2019-06-18] MEDS ORDERED: CITALOPRAM 20 MG TABLET. PO SCH (21:00)
[2019-06-19 00:06] LABS: HEMOGLOBIN A1C 7.3 % (4.8-5.6)
[2019-06-19 04:54] VITALS: BP 147/70
[2019-06-19] MEDS: LEVOTHYROXINE 125 MCG TABLET PO SCH (05:53)
[2019-06-19] MEDS: PRENATAL MULTIVITAMIN TABLET. PO SCH (08:25)
[2019-06-19] MEDS: PANTOPRAZOLE 40 MG TABLET. PO SCH (08:25)
[2019-06-19] MEDS: REPAGLINIDE 1 MG TABLET PO SCH (08:25)
[2019-06-19] MEDS: amLODIPine BESYLATE 10 MG TABLET PO SCH (08:25)
[2019-06-19] MEDS: OMEGA-3 FATTY ACIDS/FISH OIL 1,000 MG CAPSULE. PO SCH (08:25)
[2019-06-19] MEDS: MEMANTINE 5 MG TABLET. PO SCH (08:26)
[2019-06-19] MEDS: LIPASE/PROTEAS/AMYLAS 10/32/42 CAPSULE.DR. PO SCH ×3 (08:26→16:30)
[2019-06-19] MEDS: VITAMIN E. 400 UNIT CAPSULE. PO SCH (08:26)
[2019-06-19] MEDS: FERROUS SULFATE 325 MG TABLET. PO SCH (08:26)
[2019-06-19] MEDS: CARVEDILOL 6.25 MG TABLET PO SCH ×3 (08:26→20:50)
[2019-06-19] MEDS: CHOLECALCIFEROL (VITAMIN D3) 1,000 UNIT TABLET PO SCH (08:26)
[2019-06-19] MEDS: ASPIRIN ENTERIC COATED 81 MG TABLET.DR. PO SCH (08:26)
[2019-06-19] MEDS: DONEPEZIL HCL 10 MG TABLET PO SCH (08:27)
[2019-06-19] MEDS: MULTIVITAMIN I-VITE TABLET. PO SCH (08:27)
[2019-06-19] MEDS: CYANOCOBALAMIN (VITAMIN B-12) 1,000 MCG TABLET. PO SCH (08:27)
[2019-06-19] MEDS: INSULIN LISPRO 300 UNITS/3 ML VIAL. SQ SCH ×3 (08:31→18:08)
[2019-06-19 15:00] VITALS: BP 122/53
[2019-06-19 15:49] VITALS: BP 122/53
--- NOTE | 2019-06-19 17:19 | HP ---
ADMIT DATE: 06/18/2019 PSYCHIATRIC ADMISSION HISTORY/EVALUATION This late entry 06/18/2019 covers elements not covered in my initial note. I met with the patient in evening of 06/18/2019. Previously discussed with nursing staff and with Leila Chatterjee, office coordinator receptionist. I have previously been called after the patient presented to the ER, referred by Dr. Hemphill from his office on account of worsening agitation consequent to her major neurocognitive disorder, probably vascular with depression, delusions. She had been living at home with family, was getting aggressive depressed, withdrawn, making suicidal statements of wanting to end her life. She was having marked mood lability, had failed outpatient psychiatric interventions resulting in the referral to the ER and then for inpatient psychiatric stabilization. CHIEF COMPLAINT: "I have been here 4 days." The patient was in fact admitted the night previously. HISTORY OF PRESENT ILLNESS: The patient has a history of progressive short term memory deficits, dementia, vascular. She has been living at home with family increasingly agitated, depressed, hopeless, worthless, withdrawn with suicidal ideation. She has had sleep and appetite changes. No clear history of bipolar disorder or homicidal ideation. She has been paranoid, suspicious as well. PAST PSYCHIATRIC HISTORY: As above. MEDICAL HISTORY: Positive for diabetes mellitus, hypertension, hyperlipidemia, hypothyroidism, CA breast, status post left mastectomy. CODE STATUS: Full code. ALLERGIES: Negative. ACCU-CHEKS: Before meals and at bedtime. DIET: Diabetic regular. Takes medications whole. Ambulates with walker. UA on 06/17/2019, culture pending and she received Levaquin in the ER. Probable urinary tract infection. FAMILY HISTORY: Noncontributory. SOCIAL HISTORY: The patient lives at home with family. No alcohol or drug abuse, physical, sexual or elder abuse history is noted. She is not known to be a perpetrator. REACTION TO HOSPITALIZATION: The patient accepting of it. ASSETS: Supportive family. REVIEW OF SYSTEMS: No CV, , pulmonary, eye, ENT system symptoms on review. Reliability poor. MENTAL STATUS EXAMINATION: The patient is oriented to herself and situation. When questioned directly, she said that the president was president Moises, but did not know who was the president before him. 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 Attention span short. Language function intact, quite distractible. No active suicidal or homicidal ideation. She has voiced suicidal ideation, which prompted this admission in addition to the agitation. IMPRESSION: Major neurocognitive disorder, early vascular with depression; anxiety disorder, unspecified; impulse control disorder, unspecified. Rest as above. PLAN: Admit to Geropsychiatry Unit at [facility]. I will see the patient daily individually from a psychiatric standpoint. Medical followup with Dr. Wren. Treat the UTI. Observe baseline, then adjust psychotropics as clinically indicated. May consider having a CT head done as workup of her dementia. Estimated length of stay 10-12 days. DISPOSITION: Plans possibly home or assisted living depending on her evaluation in response to treatment. BESS MONIQUE MD DR: KACEY/sabrina JOB#: [id number] / [id number]
--- NOTE | 2019-06-19 20:46 | PDOC ---
Exam Note: Kristofer Note: Please also refer to the separate dictated note~for this date of service dictated separately.~Patient seen individually. Discussed the patient with Nursing staff reviewed the chart.~Reviewed interim history and current functioning. Reviewed vital signs,~Labs/ Radiology~and current medications noted below. Continue current treatment with the changes noted in the dictated addendum note Assessment: Vital Signs/I&O: Vital Signs Date Time Temp Pulse Resp B/P (MAP) Pulse Ox O2 Delivery O2 Flow Rate FiO2 06/19/19 15:49 98.0 62 16 122/53 (76) 97 06/19/19 15:00 Room Air I & O 06/18/19 06/18/19 06/19/19 15:00 23:00 07:00 Intake Total 840 ml 360 ml Balance 840 ml 360 ml Labs: Laboratory Tests Test 06/19/19 07:54 06/19/19 12:03 06/19/19 17:26 06/19/19 19:08 Glucose (Fingerstick) 192 mg/dL (70-99) H 363 mg/dL (70-99) H 409 mg/dL (70-99) H 285 mg/dL (70-99) H Current Medications: Meds: Current Medications Medications (Trade) Dose Ordered Sig/Jackie Route PRN Reason Start Time Stop Time Status Last Admin Dose Admin Citalopram Hydrobromide (CeleXA) 20 mg HS PO 06/18/19 21:00 06/19/19 18:33 DC 06/18/19 20:37 Atorvastatin Calcium (Lipitor) 40 mg QHS PO 06/18/19 21:00 06/18/19 20:31 I have reviewed the current psychotropics carefully including drug interactions. Risk benefit ratio favors no change other than as noted in my dictated progress note. Diagnosis: Problems: (1) Major neurocognitive disorder (2) Anxiety disorder (3) Dementia, vascular, with delusions (4) Dementia, vascular, with depression (5) Dementia in Alzheimer's disease with delirium (6) Dementia in Alzheimer's disease with delusions (7) Impulse control disorder BESS MONIQUE MD Jun 19, 2019 20:46
[2019-06-19] MEDS: MEMANTINE 10 MG TABLET. PO SCH (20:49)
[2019-06-19] MEDS: ATORVASTATIN CALCIUM 20 MG TABLET PO SCH (20:49)
[2019-06-19] MEDS: INSULIN GLARGINE SYRINGE. SQ SCH (21:00)
[2019-06-20] MEDS: LEVOTHYROXINE 125 MCG TABLET PO SCH (05:59)
[2019-06-20 06:20] VITALS: BP 120/74
[2019-06-20] MEDS: LIPASE/PROTEAS/AMYLAS 10/32/42 CAPSULE.DR. PO SCH ×3 (08:24→17:08)
[2019-06-20] MEDS: MULTIVITAMIN I-VITE TABLET. PO SCH (08:24)
[2019-06-20] MEDS: PANTOPRAZOLE 40 MG TABLET. PO SCH (08:24)
[2019-06-20] MEDS: CARVEDILOL 6.25 MG TABLET PO SCH ×3 (08:24→19:34)
[2019-06-20] MEDS: CYANOCOBALAMIN (VITAMIN B-12) 1,000 MCG TABLET. PO SCH (08:24)
[2019-06-20] MEDS: ASPIRIN ENTERIC COATED 81 MG TABLET.DR. PO SCH (08:24)
[2019-06-20] MEDS: PRENATAL MULTIVITAMIN TABLET. PO SCH (08:24)
[2019-06-20] MEDS: MEMANTINE 10 MG TABLET. PO SCH ×2 (08:24→19:33)
[2019-06-20] MEDS: OMEGA-3 FATTY ACIDS/FISH OIL 1,000 MG CAPSULE. PO SCH (08:24)
[2019-06-20] MEDS: DONEPEZIL HCL 10 MG TABLET PO SCH (08:25)
[2019-06-20] MEDS: amLODIPine BESYLATE 10 MG TABLET PO SCH (08:25)
[2019-06-20] MEDS: VITAMIN E. 400 UNIT CAPSULE. PO SCH (08:25)
[2019-06-20] MEDS: CHOLECALCIFEROL (VITAMIN D3) 1,000 UNIT TABLET PO SCH (08:25)
[2019-06-20] MEDS: FERROUS SULFATE 325 MG TABLET. PO SCH (08:25)
[2019-06-20] MEDS: INSULIN LISPRO 300 UNITS/3 ML VIAL. SQ SCH ×3 (08:27→17:26)
[2019-06-20] MEDS: REPAGLINIDE 1 MG TABLET PO SCH (08:31)
[2019-06-20] MEDS: SERTRALINE 25 MG TABLET. PO SCH (08:35)
[2019-06-20 14:30] VITALS: BP 116/66
--- NOTE | 2019-06-20 15:17 | TX PLAN ---
Interdisciplinary Tx Plan Admission Information Jun 17, 2019 at 21:18 Legal Status (on Admission): Voluntary DPOA/Guardian Name: Dominique Quiñones Contact Verified Code Status: Full Code Allergies: Coded Allergies: No Known Drug Allergies (Unverified , 01/25/18) Diagnoses Primary Diagnosis: Major NeuroCognitive D/O, Vascular Dementia, Alzheimer's with Depression/BD Reasons for Admission: Aggressive, Depressed, Suicidal ideation, Isolating Problem in Patient's Words: Per daughter, pt has increased sadness and gets angry when receiving help. According to the pt, her daughter and "just brought me in the car and brought me here. They realized that I needed help." Additional Admission Comments: Per intake form, increased agitation and aggression, increased depression, not engaging in meaningful activities, withdrawn, mood lability, passive suicide ideation statements. Problems Active Problems: Aggressive bx (yelling and scratching staff) during AM hours withdrawn to self Increase in confusion Inactive Problems: Medication compliant Pt Strengths/Limitations Ability for [place]: Poor Cognitive Functioning/Ability: Poor Communication Skills/Ability: Fair Financial Resources: Fair Insight/Judgement: Poor Intellectual Ability: Fair Physical Health: Poor Social Skills: Poor Stability in Family: Good Stability in School/Work: Poor Verbal Skills: Fair Discharge Criteria Discharge Criteria: Able meet basic life need, Adequate arrangements @DC, Improved behavior, Improved mood/thought Preliminary Discharge Plan Preliminary DC Plan: Current Living Arrange. Special Precautions Fall Risk: Low Initial D/C Plan Pt may potentially discharge home with family. Identified Discharge Needs: Pt daughter is open to discharge options if recommended. She "does not necessarily want to put both parents in a home," however pt "is not getting better with dementia and diabetes" diagnosis. Per daughter, pt's is "declining quite a bit as well." Currently Utilized Resources Currently Utilized Resources/P: has a PCP with Dr. Hemphill Referrals Community Resources: May need placement or more mental health options. Identified Problems/Hx/Goals Objectives/Short-Term Goals Short Term Goals: Dec. Symp. Depression, Medication Stabilization, Promote Coping Skill, Other Short Term Goals in Patient's: "I just need help" Interventions/Frequency Staff Interventions/Frequency&: Psychiatrist to see pt at least 3x per week. [facility] Nurse to see pt at least 2x per week. Nursing to complete 15 minute checks daily. Encourage participation within group activities. 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 She had friends at work. After the day ended, she would go out and constitution party. "[id number]-A-[id number]." Education: Per pt, high school graduate at [employer]. "Probably a B student and enjoyed going to school." Community Follow-up maintain seeing Dr. Hemphill Community Provider/Family Inpu: "I just need her better, more compliant and happy" Treatment Plan Explained Patient/Garment Manufacturer had this treatment plan explained to him/her as indicated by the signature below and has been given the opportunity to ask questions and make suggestions: Date: Patient/Garment Manufacturer Signature: Patient/Garment Manufacturer Decline: No (Pt dtr plans to participate in pt care) CHIDI DAVIS Jun 20, 2019 15:17
[2019-06-20 16:08] VITALS: BP 110/70
--- NOTE | 2019-06-20 19:22 | PN ---
DATE: 06/19/2019 PSYCHIATRIC PROGRESS NOTE This late entry 06/19/2019 covers elements not covered in my initial note. SUBJECTIVE: I met with the patient evening of 06/19/2019. Per GARRETT Delatorre, the patient slept 5-1/4 hours previous night. She has been pleasant, was agitated in the morning, scratching staff, aggressive, later came out to the day room. Short term memory is impaired. REVIEW OF SYSTEMS: No CV, , pulmonary, eye, ENT system symptoms on review. Reliability varies. MENTAL STATUS EXAM: Oriented to herself and situation. Speech is coherent, has some latency. Abstraction fair, computation impaired, language function intact, attention span short. Mood and affect remains somewhat depressed, anxious. LABORATORY DATA: Reviewed. IMPRESSION: Major neurocognitive disorder, vascular with delusion, depression, behavioral disturbance; anxiety disorder, unspecified; impulse control disorder, unspecified. PLAN: Increase Namenda from 5 mg b.i.d. to 10 mg b.i.d. Change Celexa 20 mg a day to Zoloft 25 mg a day and 3 days later to 50 mg a day. Maintain Aricept 10 mg a day. Rest unchanged for now. Consider Seroquel if psychotic symptoms, agitation, aggression resurfaces. BESS MONIQUE MD DR: KACEY/sabrina JOB#: [id number] / [id number]
[2019-06-20] MEDS: ATORVASTATIN CALCIUM 20 MG TABLET PO SCH (19:34)
[2019-06-20] MEDS: INSULIN GLARGINE SYRINGE. SQ SCH (20:58)
--- NOTE | 2019-06-20 20:58 | PDOC ---
Exam Note: Kristofer Note: Please also refer to the separate dictated note~for this date of service dictated separately.~Patient seen individually. Discussed the patient with Nursing staff reviewed the chart.~Reviewed interim history and current functioning. Reviewed vital signs,~Labs/ Radiology~and current medications noted below. Continue current treatment with the changes noted in the dictated addendum note Assessment: Vital Signs/I&O: Vital Signs Date Time Temp Pulse Resp B/P (MAP) Pulse Ox O2 Delivery O2 Flow Rate FiO2 06/20/19 19:34 65 110/70 06/20/19 16:08 98.6 16 98 06/20/19 14:30 Room Air I & O 06/19/19 06/19/19 06/20/19 15:00 23:00 07:00 Intake Total 960 ml 600 ml Balance 960 ml 600 ml Labs: Laboratory Tests Test 06/20/19 07:24 06/20/19 11:34 06/20/19 17:15 06/20/19 19:21 Glucose (Fingerstick) 103 mg/dL (70-99) H 283 mg/dL (70-99) H 166 mg/dL (70-99) H 184 mg/dL (70-99) H Current Medications: Meds: Current Medications Medications (Trade) Dose Ordered Sig/Jackie Route PRN Reason Start Time Stop Time Status Last Admin Dose Admin Memantine (Namenda) 10 mg BID PO 06/19/19 21:00 06/20/19 19:33 Sertraline HCl (Zoloft) 25 mg DAILY PO 06/20/19 09:00 06/22/19 16:00 06/20/19 08:35 I have reviewed the current psychotropics carefully including drug interactions. Risk benefit ratio favors no change other than as noted in my dictated progress note. Diagnosis: Problems: (1) Major neurocognitive disorder (2) Anxiety disorder (3) Dementia, vascular, with delusions (4) Medical clearance for psychiatric admission (5) Dementia, vascular, with depression (6) Dementia in Alzheimer's disease with delirium (7) Dementia in Alzheimer's disease with delusions (8) Impulse control disorder BESS MONIQUE MD Jun 20, 2019 20:57
[2019-06-21] MEDS: LEVOTHYROXINE 125 MCG TABLET PO SCH (05:24)
[2019-06-21 06:05] VITALS: BP 130/71
[2019-06-21 06:06] VITALS: BP 130/71
[2019-06-21] MEDS: INSULIN LISPRO 300 UNITS/3 ML VIAL. SQ SCH ×3 (07:33→16:54)
[2019-06-21] MEDS: OMEGA-3 FATTY ACIDS/FISH OIL 1,000 MG CAPSULE. PO SCH (08:25)
[2019-06-21] MEDS: CYANOCOBALAMIN (VITAMIN B-12) 1,000 MCG TABLET. PO SCH (08:25)
[2019-06-21] MEDS: MEMANTINE 10 MG TABLET. PO SCH ×2 (08:25→20:26)
[2019-06-21] MEDS: PRENATAL MULTIVITAMIN TABLET. PO SCH (08:25)
[2019-06-21] MEDS: VITAMIN E. 400 UNIT CAPSULE. PO SCH (08:25)
[2019-06-21] MEDS: SERTRALINE 25 MG TABLET. PO SCH (08:25)
[2019-06-21] MEDS: FERROUS SULFATE 325 MG TABLET. PO SCH (08:26)
[2019-06-21] MEDS: amLODIPine BESYLATE 10 MG TABLET PO SCH (08:26)
[2019-06-21] MEDS: REPAGLINIDE 1 MG TABLET PO SCH (08:26)
[2019-06-21] MEDS: MULTIVITAMIN I-VITE TABLET. PO SCH (08:26)
[2019-06-21] MEDS: CARVEDILOL 6.25 MG TABLET PO SCH ×3 (08:27→19:56)
[2019-06-21] MEDS: ASPIRIN ENTERIC COATED 81 MG TABLET.DR. PO SCH (08:27)
[2019-06-21] MEDS: CHOLECALCIFEROL (VITAMIN D3) 1,000 UNIT TABLET PO SCH (08:27)
[2019-06-21] MEDS: DONEPEZIL HCL 10 MG TABLET PO SCH (08:27)
[2019-06-21] MEDS: LIPASE/PROTEAS/AMYLAS 10/32/42 CAPSULE.DR. PO SCH ×3 (08:27→17:12)
[2019-06-21] MEDS: PANTOPRAZOLE 40 MG TABLET. PO SCH (08:27)
[2019-06-21 14:33] VITALS: BP 104/51
[2019-06-21 15:52] VITALS: BP 101/63
[2019-06-21] MEDS: ATORVASTATIN CALCIUM 20 MG TABLET PO SCH (20:26)
[2019-06-21] MEDS: INSULIN GLARGINE SYRINGE. SQ SCH (20:27)
--- NOTE | 2019-06-21 20:56 | PDOC ---
Exam Note: Kristofer Note: Please also refer to the separate dictated note~for this date of service dictated separately.~Patient seen individually. Discussed the patient with Nursing staff reviewed the chart.~Reviewed interim history and current functioning. Reviewed vital signs,~Labs/ Radiology~and current medications noted below. Continue current treatment with the changes noted in the dictated addendum note Assessment: Vital Signs/I&O: Vital Signs Date Time Temp Pulse Resp B/P (MAP) Pulse Ox O2 Delivery O2 Flow Rate FiO2 06/21/19 19:56 68 101/63 06/21/19 15:52 97.8 18 98 06/20/19 14:30 Room Air I & O 06/20/19 06/20/19 06/21/19 15:00 23:00 07:00 Intake Total 840 ml 480 ml Balance 840 ml 480 ml Labs: Laboratory Tests Test 06/21/19 07:18 06/21/19 07:44 06/21/19 11:41 06/21/19 16:31 Glucose (Fingerstick) 55 mg/dL (70-99) L 92 mg/dL (70-99) 376 mg/dL (70-99) H 103 mg/dL (70-99) H Test 06/21/19 19:14 Glucose (Fingerstick) 279 mg/dL (70-99) H Current Medications: I have reviewed the current psychotropics carefully including drug interactions. Risk benefit ratio favors no change other than as noted in my dictated progress note. Diagnosis: Problems: (1) Major neurocognitive disorder (2) Anxiety disorder (3) Dementia, vascular, with delusions (4) Medical clearance for psychiatric admission (5) Dementia, vascular, with depression (6) Dementia in Alzheimer's disease with delirium (7) Dementia in Alzheimer's disease with delusions (8) Impulse control disorder BESS MONIQUE MD Jun 21, 2019 20:56
--- NOTE | 2019-06-21 22:17 | PN ---
DATE: 06/20/2019 This late entry, 06/20, covers elements not covered in my initial note. SUBJECTIVE: I met with the patient evening of 06/20 and staffed at a treatment team meeting with the entire team in the morning and the patient's daughter, Flaquita, attended this conference. We reviewed her history, diagnosis, progress. She is sleeping approximately 7 hours each night. She has been agitated, yelling at staff, scratching staff, compliant with medications. REVIEW OF SYSTEMS: No CV, , pulmonary, eye system symptoms on review. Reliability poor. MENTAL STATUS EXAM: Oriented to herself. Insight, judgment, recent and remote memory, attention, concentration, fund of knowledge poor, consistent with her diagnosis mentioned in my initial note. IMPRESSION: Major neurocognitive disorder, Alzheimer, vascular with delusion, depression, behavioral disturbance; anxiety disorder, unspecified; impulse control disorder, unspecified. PLAN: No change from initial note. Maintain Namenda, Aricept, and Zoloft, which will be increased to 50 mg a day on 06/23. We will decide on further interventions depending on her progress. BESS MONIQUE MD DR: KACEY/sabrina JOB#: [id number] / [id number]
[2019-06-22 05:23] VITALS: BP 144/75
[2019-06-22] MEDS: LEVOTHYROXINE 125 MCG TABLET PO SCH (05:45)
[2019-06-22] MEDS: REPAGLINIDE 1 MG TABLET PO SCH (08:22)
[2019-06-22] MEDS: PANTOPRAZOLE 40 MG TABLET. PO SCH (08:23)
[2019-06-22] MEDS: LIPASE/PROTEAS/AMYLAS 10/32/42 CAPSULE.DR. PO SCH ×3 (08:23→17:13)
[2019-06-22] MEDS: INSULIN LISPRO 300 UNITS/3 ML VIAL. SQ SCH ×3 (08:23→17:13)
[2019-06-22] MEDS: CARVEDILOL 6.25 MG TABLET PO SCH ×3 (08:24→20:35)
[2019-06-22] MEDS: DONEPEZIL HCL 10 MG TABLET PO SCH (08:24)
[2019-06-22] MEDS: ASPIRIN ENTERIC COATED 81 MG TABLET.DR. PO SCH (08:24)
[2019-06-22] MEDS: PRENATAL MULTIVITAMIN TABLET. PO SCH (08:25)
[2019-06-22] MEDS: amLODIPine BESYLATE 10 MG TABLET PO SCH (08:25)
[2019-06-22] MEDS: MEMANTINE 10 MG TABLET. PO SCH ×2 (08:25→20:35)
[2019-06-22] MEDS: MULTIVITAMIN I-VITE TABLET. PO SCH (08:25)
[2019-06-22] MEDS: CYANOCOBALAMIN (VITAMIN B-12) 1,000 MCG TABLET. PO SCH (08:25)
[2019-06-22] MEDS: FERROUS SULFATE 325 MG TABLET. PO SCH (08:25)
[2019-06-22] MEDS: OMEGA-3 FATTY ACIDS/FISH OIL 1,000 MG CAPSULE. PO SCH (08:25)
[2019-06-22] MEDS: CHOLECALCIFEROL (VITAMIN D3) 1,000 UNIT TABLET PO SCH (08:26)
[2019-06-22] MEDS: SERTRALINE 25 MG TABLET. PO SCH (08:26)
[2019-06-22] MEDS: VITAMIN E. 400 UNIT CAPSULE. PO SCH (08:26)
[2019-06-22] MEDS ORDERED: INSULIN LISPRO 300 UNITS/3 ML VIAL. SQ SCH (12:00)
[2019-06-22 13:27] VITALS: BP 110/54
[2019-06-22 15:55] VITALS: BP 130/61
[2019-06-22] MEDS: ATORVASTATIN CALCIUM 20 MG TABLET PO SCH (20:35)
[2019-06-22] MEDS: INSULIN GLARGINE SYRINGE. SQ SCH (20:39)
--- NOTE | 2019-06-22 22:27 | PDOC ---
Exam Note: Kristofer Note: Please also refer to the separate dictated note~for this date of service dictated separately.~Patient seen individually. Discussed the patient with Nursing staff reviewed the chart.~Reviewed interim history and current functioning. Reviewed vital signs,~Labs/ Radiology~and current medications noted below. Continue current treatment with the changes noted in the dictated addendum note Assessment: Vital Signs/I&O: Vital Signs Date Time Temp Pulse Resp B/P (MAP) Pulse Ox O2 Delivery O2 Flow Rate FiO2 06/22/19 20:35 72 130/61 06/22/19 15:55 98.0 20 98 06/20/19 14:30 Room Air I & O 06/21/19 06/21/19 06/22/19 15:00 23:00 07:00 Intake Total 960 ml 1200 ml Balance 960 ml 1200 ml Labs: Laboratory Tests Test 06/22/19 07:21 06/22/19 11:42 06/22/19 15:32 06/22/19 17:11 Glucose (Fingerstick) 141 mg/dL (70-99) H 368 mg/dL (70-99) H 121 mg/dL (70-99) H 94 mg/dL (70-99) Test 06/22/19 19:11 Glucose (Fingerstick) 232 mg/dL (70-99) H Current Medications: Meds: Current Medications Medications (Trade) Dose Ordered Sig/Jackie Route PRN Reason Start Time Stop Time Status Last Admin Dose Admin Insulin Glargine (Lantus Syringe) 25 unit QHS SQ 06/22/19 21:00 06/22/19 20:39 Insulin Human Lispro (HumaLOG) 9 units 1X SQ 06/22/19 12:00 06/22/19 12:26 I have reviewed the current psychotropics carefully including drug interactions. Risk benefit ratio favors no change other than as noted in my dictated progress note. Diagnosis: Problems: (1) Major neurocognitive disorder (2) Anxiety disorder (3) Dementia, vascular, with delusions (4) Medical clearance for psychiatric admission (5) Dementia, vascular, with depression (6) Dementia in Alzheimer's disease with delirium (7) Dementia in Alzheimer's disease with delusions (8) Impulse control disorder BESS MONIQUE MD Jun 22, 2019 22:27
[2019-06-23 05:45] VITALS: BP 159/70
[2019-06-23] MEDS: LEVOTHYROXINE 125 MCG TABLET PO SCH (06:40)
[2019-06-23 07:16] LABS: BASO % 0 % (0-3); EOS # 0.2 x10^3/uL (0.0-0.7); EOS % 3 % (0-3); HEMATOCRIT 39.3 % (36.0-47.0); HEMOGLOBIN 12.9 g/dL (12.0-15.5); LYMPH # 1.9 x10^3/uL (1.0-4.8); LYMPH % 28 % (24-48); MEAN CORPUSCULAR HEMOGLOBIN 31 pg (25-35); MEAN CORPUSCULAR HGB CONC 33 g/dL (31-37); MEAN CORPUSCULAR VOLUME 95 fL (79-100); MONO # 0.7 x10^3/uL (0.0-1.1); MONO % 10 % (0-9); NEUT # 3.9 x10^3uL (1.8-7.7); NEUT % 59 % (31-73); PLATELET COUNT 173 x10^3/uL (140-400); RED BLOOD COUNT 4.16 x10^6/uL (3.50-5.40); RED CELL DISTRIBUTION WIDTH 13.4 % (11.5-14.5); WHITE BLOOD COUNT 6.7 x10^3/uL (4.0-11.0)
[2019-06-23 07:42] LABS: ALBUMIN 2.9 g/dL (3.4-5.0); CALCIUM 8.5 mg/dL (8.5-10.1); CREATININE 1.3 mg/dL (0.6-1.0); GFR 38.9; POTASSIUM 4.3 mmol/L (3.5-5.1); TOTAL BILIRUBIN 0.5 mg/dL (0.2-1.0); TOTAL PROTEIN 5.9 g/dL (6.4-8.2)
[2019-06-23] MEDS: INSULIN LISPRO 300 UNITS/3 ML VIAL. SQ SCH ×3 (08:00→17:20)
[2019-06-23] MEDS: REPAGLINIDE 1 MG TABLET PO SCH (08:38)
[2019-06-23] MEDS: PANTOPRAZOLE 40 MG TABLET. PO SCH (08:39)
[2019-06-23] MEDS: LIPASE/PROTEAS/AMYLAS 10/32/42 CAPSULE.DR. PO SCH ×3 (08:39→17:17)
[2019-06-23] MEDS: ASPIRIN ENTERIC COATED 81 MG TABLET.DR. PO SCH (08:40)
[2019-06-23] MEDS: DONEPEZIL HCL 10 MG TABLET PO SCH (08:40)
[2019-06-23] MEDS: CARVEDILOL 6.25 MG TABLET PO SCH ×3 (08:41→20:05)
[2019-06-23] MEDS: FERROUS SULFATE 325 MG TABLET. PO SCH (08:41)
[2019-06-23] MEDS: OMEGA-3 FATTY ACIDS/FISH OIL 1,000 MG CAPSULE. PO SCH (08:41)
[2019-06-23] MEDS: MEMANTINE 10 MG TABLET. PO SCH ×2 (08:42→20:05)
[2019-06-23] MEDS: MULTIVITAMIN I-VITE TABLET. PO SCH (08:42)
[2019-06-23] MEDS: PRENATAL MULTIVITAMIN TABLET. PO SCH (08:42)
[2019-06-23] MEDS: VITAMIN E. 400 UNIT CAPSULE. PO SCH (08:43)
[2019-06-23] MEDS: amLODIPine BESYLATE 10 MG TABLET PO SCH (08:43)
[2019-06-23] MEDS: CHOLECALCIFEROL (VITAMIN D3) 1,000 UNIT TABLET PO SCH (08:43)
[2019-06-23] MEDS: CYANOCOBALAMIN (VITAMIN B-12) 1,000 MCG TABLET. PO SCH (08:43)
[2019-06-23] MEDS: SERTRALINE 50 MG TABLET. PO SCH (08:44)
[2019-06-23 10:46] LABS: % ATYL 7 % (0-0); % BANDS 3 % (0-9); % BASOS 1 % (0-3); % LYMPHS 17 % (24-48); % MONOS 12 % (0-10); % SEGS 60 % (35-66)
[2019-06-23 10:49] LABS: PLT ESTIMATE ADEQUATE (ADEQUATE)
[2019-06-23 15:43] VITALS: BP 100/59
[2019-06-23 20:02] VITALS: BP 142/55
[2019-06-23] MEDS: ATORVASTATIN CALCIUM 20 MG TABLET PO SCH (20:05)
[2019-06-23] MEDS: INSULIN GLARGINE SYRINGE. SQ SCH (20:09)
--- NOTE | 2019-06-23 20:45 | PDOC ---
Exam Note: Kristofer Note: Please also refer to the separate dictated note~for this date of service dictated separately.~Patient seen individually. Discussed the patient with Nursing staff reviewed the chart.~Reviewed interim history and current functioning. Reviewed vital signs,~Labs/ Radiology~and current medications noted below. Continue current treatment with the changes noted in the dictated addendum note Assessment: Vital Signs/I&O: Vital Signs Date Time Temp Pulse Resp B/P (MAP) Pulse Ox O2 Delivery O2 Flow Rate FiO2 06/23/19 20:05 60 142/55 06/23/19 20:02 18 98 06/23/19 15:43 98.4 06/20/19 14:30 Room Air I & O 06/22/19 06/22/19 06/23/19 15:00 23:00 07:00 Intake Total 600 ml 600 ml Balance 600 ml 600 ml Labs: Laboratory Tests Test 06/23/19 06:49 06/23/19 07:40 06/23/19 12:14 06/23/19 17:16 White Blood Count 6.7 x10^3/uL (4.0-11.0) Red Blood Count 4.16 x10^6/uL (3.50-5.40) Hemoglobin 12.9 g/dL (12.0-15.5) Hematocrit 39.3 % (36.0-47.0) Mean Corpuscular Volume 95 fL (79-100) Mean Corpuscular Hemoglobin 31 pg (25-35) Mean Corpuscular Hemoglobin Concent 33 g/dL (31-37) Red Cell Distribution Width 13.4 % (11.5-14.5) Platelet Count 173 x10^3/uL (140-400) Neutrophils (%) (Auto) 59 % (31-73) Lymphocytes (%) (Auto) 28 % (24-48) Monocytes (%) (Auto) 10 % (0-9) H Eosinophils (%) (Auto) 3 % (0-3) Basophils (%) (Auto) 0 % (0-3) Neutrophils # (Auto) 3.9 x10^3uL (1.8-7.7) Lymphocytes # (Auto) 1.9 x10^3/uL (1.0-4.8) Monocytes # (Auto) 0.7 x10^3/uL (0.0-1.1) Eosinophils # (Auto) 0.2 x10^3/uL (0.0-0.7) Basophils # (Auto) 0.0 x10^3/uL (0.0-0.2) Segmented Neutrophils % 60 % (35-66) Band Neutrophils % 3 % (0-9) Lymphocytes % 17 % (24-48) L Atypical Lymphocytes % (Manual) 7 % (0-0) H Monocytes % 12 % (0-10) H Basophils % 1 % (0-3) Platelet Estimate Adequate (ADEQUATE) Sodium Level 142 mmol/L (136-145) Potassium Level 4.3 mmol/L (3.5-5.1) Chloride Level 107 mmol/L (98-107) Carbon Dioxide Level 30 mmol/L (21-32) Anion Gap 5 (6-14) L Blood Urea Nitrogen 36 mg/dL (7-20) H Creatinine 1.3 mg/dL (0.6-1.0) H Estimated GFR (Cockcroft-Gault) 38.9 BUN/Creatinine Ratio 28 (6-20) H Glucose Level 157 mg/dL (70-99) H Calcium Level 8.5 mg/dL (8.5-10.1) Total Bilirubin 0.5 mg/dL (0.2-1.0) Aspartate Amino Transferase (AST) 22 U/L (15-37) Alanine Aminotransferase (ALT) 35 U/L (14-59) Alkaline Phosphatase 91 U/L (46-116) Total Protein 5.9 g/dL (6.4-8.2) L Albumin 2.9 g/dL (3.4-5.0) L Albumin/Globulin Ratio 1.0 (1.0-1.7) Glucose (Fingerstick) 138 mg/dL (70-99) H 273 mg/dL (70-99) H 188 mg/dL (70-99) H Test 06/23/19 19:23 Glucose (Fingerstick) 221 mg/dL (70-99) H Current Medications: Meds: Current Medications Medications (Trade) Dose Ordered Sig/Jackie Route PRN Reason Start Time Stop Time Status Last Admin Dose Admin Sertraline HCl (Zoloft) 50 mg DAILY PO 06/23/19 09:00 06/23/19 08:44 Insulin Glargine (Lantus Syringe) 25 unit QHS SQ 06/22/19 21:00 06/23/19 20:09 I have reviewed the current psychotropics carefully including drug interactions. Risk benefit ratio favors no change other than as noted in my dictated progress note. Diagnosis: Problems: (1) Major neurocognitive disorder (2) Anxiety disorder (3) Dementia, vascular, with delusions (4) Dementia, vascular, with depression (5) Dementia in Alzheimer's disease with delirium (6) Dementia in Alzheimer's disease with delusions (7) Impulse control disorder BESS MONIQUE MD Jun 23, 2019 20:45
--- NOTE | 2019-06-24 00:04 | PN ---
DATE: 06/21/2019 PSYCHIATRIC PROGRESS NOTE This late entry, 06/21, covers elements not covered in my initial note. SUBJECTIVE: I met with the patient evening of 06/21. Per GARRETT Hawkins, the patient slept 6-1/4 hours previous night. She remains pleasant, but confused with short-term memory deficits, somewhat withdrawn at night. REVIEW OF SYSTEMS: No CV, , pulmonary, eye, ENT system symptoms on review. Reliability poor. Ambulation impaired with walker. MENTAL STATUS EXAM: Oriented to herself. Insight, judgment, recent and remote memory, attention, concentration, fund of knowledge poor, consistent with her diagnosis mentioned in my initial note. PLAN: No change from initial note. MAN Kesha MONIQUE MD DR: KACEY/sabrina JOB#: [id number] / [id number]
[2019-06-24] MEDS: LEVOTHYROXINE 125 MCG TABLET PO SCH (05:42)
[2019-06-24 05:57] VITALS: BP 137/67
[2019-06-24] MEDS: INSULIN LISPRO 300 UNITS/3 ML VIAL. SQ SCH ×3 (08:15→17:13)
[2019-06-24] MEDS: REPAGLINIDE 1 MG TABLET PO SCH (08:15)
[2019-06-24] MEDS: LIPASE/PROTEAS/AMYLAS 10/32/42 CAPSULE.DR. PO SCH ×3 (08:15→17:12)
[2019-06-24] MEDS: PANTOPRAZOLE 40 MG TABLET. PO SCH (08:15)
[2019-06-24] MEDS: ASPIRIN ENTERIC COATED 81 MG TABLET.DR. PO SCH (08:16)
[2019-06-24] MEDS: DONEPEZIL HCL 10 MG TABLET PO SCH (08:16)
[2019-06-24] MEDS: MEMANTINE 10 MG TABLET. PO SCH ×2 (08:17→20:43)
[2019-06-24] MEDS: MULTIVITAMIN I-VITE TABLET. PO SCH (08:17)
[2019-06-24] MEDS: OMEGA-3 FATTY ACIDS/FISH OIL 1,000 MG CAPSULE. PO SCH (08:17)
[2019-06-24] MEDS: amLODIPine BESYLATE 10 MG TABLET PO SCH (08:17)
[2019-06-24] MEDS: CARVEDILOL 6.25 MG TABLET PO SCH ×3 (08:17→20:44)
[2019-06-24] MEDS: PRENATAL MULTIVITAMIN TABLET. PO SCH (08:17)
[2019-06-24] MEDS: FERROUS SULFATE 325 MG TABLET. PO SCH (08:17)
[2019-06-24] MEDS: VITAMIN E. 400 UNIT CAPSULE. PO SCH (08:18)
[2019-06-24] MEDS: SERTRALINE 50 MG TABLET. PO SCH (08:18)
[2019-06-24] MEDS: CHOLECALCIFEROL (VITAMIN D3) 1,000 UNIT TABLET PO SCH (08:18)
[2019-06-24] MEDS: CYANOCOBALAMIN (VITAMIN B-12) 1,000 MCG TABLET. PO SCH (08:18)
[2019-06-24 13:35] VITALS: BP 128/63
[2019-06-24 15:12] VITALS: BP 102/53
[2019-06-24 20:40] VITALS: BP 124/61
[2019-06-24] MEDS: ATORVASTATIN CALCIUM 20 MG TABLET PO SCH (20:44)
[2019-06-24] MEDS: INSULIN GLARGINE SYRINGE. SQ SCH (20:48)
--- NOTE | 2019-06-24 21:32 | PDOC ---
Exam Note: Kristofer Note: Please also refer to the separate dictated note~for this date of service dictated separately.~Patient seen individually. Discussed the patient with Nursing staff reviewed the chart.~Reviewed interim history and current functioning. Reviewed vital signs,~Labs/ Radiology~and current medications noted below. Continue current treatment with the changes noted in the dictated addendum note Assessment: Vital Signs/I&O: Vital Signs Date Time Temp Pulse Resp B/P (MAP) Pulse Ox O2 Delivery O2 Flow Rate FiO2 06/24/19 20:44 60 124/61 06/24/19 20:40 18 98 06/24/19 15:12 98.4 06/20/19 14:30 Room Air I & O 06/23/19 06/23/19 06/24/19 15:00 23:00 07:00 Intake Total 360 ml 840 ml Balance 360 ml 840 ml Labs: Laboratory Tests Test 06/24/19 07:46 06/24/19 12:04 06/24/19 16:50 06/24/19 19:08 Glucose (Fingerstick) 72 mg/dL (70-99) 307 mg/dL (70-99) H 109 mg/dL (70-99) H 263 mg/dL (70-99) H Current Medications: I have reviewed the current psychotropics carefully including drug interactions. Risk benefit ratio favors no change other than as noted in my dictated progress note. Diagnosis: Problems: (1) Major neurocognitive disorder (2) Anxiety disorder (3) Dementia, vascular, with delusions (4) Medical clearance for psychiatric admission (5) Dementia, vascular, with depression (6) Dementia in Alzheimer's disease with delirium (7) Dementia in Alzheimer's disease with delusions (8) Impulse control disorder BESS MONIQUE MD Jun 24, 2019 21:32
--- NOTE | 2019-06-25 00:43 | PN ---
DATE: 06/23/2019 PSYCHIATRIC PROGRESS NOTE This late entry 06/23/2019 covers the elements not covered in my initial note. SUBJECTIVE: I met with the patient in the evening. The patient slept 5-3/4 hours previous night. She remains confused, forgetful, compliant with medications. Her and son again came to visit her, but this was in the afternoon and by the time I met her in the evening, she did not remember this. She is otherwise pleasant, smiling. REVIEW OF SYSTEMS: No CV, , pulmonary, eye, ENT system symptoms on review. Reliability is poor. MENTAL STATUS EXAM: Oriented to herself. Insight, judgment, recent and remote memory, attention, concentration, fund of knowledge poor, consistent with her diagnosis mentioned in my initial note. PLAN: No change from initial note. MAN Kesha MONIQUE MD DR: KACEY/sabrina JOB#: [id number] / [id number]
--- NOTE | 2019-06-25 00:51 | PN ---
DATE: 06/22/2019 PSYCHIATRIC PROGRESS NOTE This late entry 06/22/2019 covers elements not covered in my initial note. SUBJECTIVE: I met with the patient evening of 06/22/2019. The patient slept 7-1/4 hours previous night. The patient remains confused, somewhat forgetful. Her and son came to visit her and she did not remember this when I questioned her in the evening. No suicidal ideation noted. REVIEW OF SYSTEMS: No CV, , pulmonary, eye, ENT system symptoms on review. Reliability poor. MENTAL STATUS EXAM: Oriented to herself. Insight, judgment, recent and remote memory, attention, concentration, fund of knowledge poor, consistent with her diagnosis mentioned in my initial note. PLAN: No change from initial note. MAN Kesha MONIQUE MD DR: KACEY/sabrina JOB#: [id number] / [id number]
[2019-06-25 05:32] VITALS: BP 135/54
[2019-06-25] MEDS: LEVOTHYROXINE 125 MCG TABLET PO SCH (05:49)
[2019-06-25] MEDS: INSULIN LISPRO 300 UNITS/3 ML VIAL. SQ SCH ×3 (07:48→17:44)
[2019-06-25] MEDS: DONEPEZIL HCL 10 MG TABLET PO SCH (08:39)
[2019-06-25] MEDS: VITAMIN E. 400 UNIT CAPSULE. PO SCH (08:39)
[2019-06-25] MEDS: MULTIVITAMIN I-VITE TABLET. PO SCH (08:39)
[2019-06-25] MEDS: MEMANTINE 10 MG TABLET. PO SCH ×2 (08:40→20:47)
[2019-06-25] MEDS: SERTRALINE 50 MG TABLET. PO SCH (08:40)
[2019-06-25] MEDS: ASPIRIN ENTERIC COATED 81 MG TABLET.DR. PO SCH (08:40)
[2019-06-25] MEDS: LIPASE/PROTEAS/AMYLAS 10/32/42 CAPSULE.DR. PO SCH ×3 (08:40→17:43)
[2019-06-25] MEDS: PRENATAL MULTIVITAMIN TABLET. PO SCH (08:40)
[2019-06-25] MEDS: CHOLECALCIFEROL (VITAMIN D3) 1,000 UNIT TABLET PO SCH (08:40)
[2019-06-25] MEDS: CYANOCOBALAMIN (VITAMIN B-12) 1,000 MCG TABLET. PO SCH (08:40)
[2019-06-25] MEDS: CARVEDILOL 6.25 MG TABLET PO SCH ×3 (08:40→20:30)
[2019-06-25] MEDS: amLODIPine BESYLATE 10 MG TABLET PO SCH (08:41)
[2019-06-25] MEDS: OMEGA-3 FATTY ACIDS/FISH OIL 1,000 MG CAPSULE. PO SCH (08:41)
[2019-06-25] MEDS: FERROUS SULFATE 325 MG TABLET. PO SCH (08:41)
[2019-06-25] MEDS: REPAGLINIDE 1 MG TABLET PO SCH (08:41)
[2019-06-25] MEDS: PANTOPRAZOLE 40 MG TABLET. PO SCH (08:42)
[2019-06-25 15:52] VITALS: BP 112/65
[2019-06-25] MEDS: ATORVASTATIN CALCIUM 20 MG TABLET PO SCH (20:48)
[2019-06-25] MEDS: INSULIN GLARGINE SYRINGE. SQ SCH (20:50)
--- NOTE | 2019-06-25 21:47 | PDOC ---
Exam Note: Kristofer Note: Please also refer to the separate dictated note~for this date of service dictated separately.~Patient seen individually. Discussed the patient with Nursing staff reviewed the chart.~Reviewed interim history and current functioning. Reviewed vital signs,~Labs/ Radiology~and current medications noted below. Continue current treatment with the changes noted in the dictated addendum note Assessment: Vital Signs/I&O: Vital Signs Date Time Temp Pulse Resp B/P (MAP) Pulse Ox O2 Delivery O2 Flow Rate FiO2 06/25/19 20:30 61 112/65 06/25/19 15:52 98.4 16 99 06/20/19 14:30 Room Air I & O 06/24/19 06/24/19 06/25/19 15:00 23:00 07:00 Intake Total 480 ml 340 ml Balance 480 ml 340 ml Labs: Laboratory Tests Test 06/25/19 07:23 06/25/19 11:58 06/25/19 17:06 Glucose (Fingerstick) 108 mg/dL (70-99) H 388 mg/dL (70-99) H 181 mg/dL (70-99) H Current Medications: I have reviewed the current psychotropics carefully including drug interactions. Risk benefit ratio favors no change other than as noted in my dictated progress note. Diagnosis: Problems: (1) Major neurocognitive disorder (2) Anxiety disorder (3) Dementia, vascular, with delusions (4) Dementia, vascular, with depression (5) Dementia in Alzheimer's disease with delirium (6) Dementia in Alzheimer's disease with delusions (7) Impulse control disorder BESS MONIQUE MD Jun 25, 2019 21:47
--- NOTE | 2019-06-25 22:38 | PN ---
DATE: 06/24/2019 This late entry of 06/24 covers elements not covered in my initial note. SUBJECTIVE: I met with the patient on the evening of 06/24. Per GARRETT Wilson, the patient slept 8-3/4 hours the previous night. She had a good night, did well during the day; remains confused, not aggressive. REVIEW OF SYSTEMS: No CV, , pulmonary, eye, ENT system symptoms on review. Reliability poor. MENTAL STATUS EXAMINATION: Oriented to herself. Insight, judgment, recent and remote memory, attention, concentration, fund of knowledge poor; consistent with her diagnosis mentioned in my initial note. PLAN: No change from initial note. MAN Kesha MONIQUE MD DR: KACEY/sabrina JOB#: [id number] / [id number]
[2019-06-26] MEDS: LEVOTHYROXINE 125 MCG TABLET PO SCH (05:48)
[2019-06-26 06:29] VITALS: BP 163/63
[2019-06-26] MEDS: FERROUS SULFATE 325 MG TABLET. PO SCH (08:46)
[2019-06-26] MEDS: MULTIVITAMIN I-VITE TABLET. PO SCH (08:47)
[2019-06-26] MEDS: DONEPEZIL HCL 10 MG TABLET PO SCH (08:47)
[2019-06-26] MEDS: SERTRALINE 50 MG TABLET. PO SCH (08:47)
[2019-06-26] MEDS: CARVEDILOL 6.25 MG TABLET PO SCH ×3 (08:47→19:21)
[2019-06-26] MEDS: PANTOPRAZOLE 40 MG TABLET. PO SCH (08:47)
[2019-06-26] MEDS: PRENATAL MULTIVITAMIN TABLET. PO SCH (08:47)
[2019-06-26] MEDS: amLODIPine BESYLATE 10 MG TABLET PO SCH (08:47)
[2019-06-26] MEDS: ASPIRIN ENTERIC COATED 81 MG TABLET.DR. PO SCH (08:47)
[2019-06-26] MEDS: OMEGA-3 FATTY ACIDS/FISH OIL 1,000 MG CAPSULE. PO SCH (08:47)
[2019-06-26] MEDS: MEMANTINE 10 MG TABLET. PO SCH ×2 (08:48→20:43)
[2019-06-26] MEDS: VITAMIN E. 400 UNIT CAPSULE. PO SCH (08:48)
[2019-06-26] MEDS: CHOLECALCIFEROL (VITAMIN D3) 1,000 UNIT TABLET PO SCH (08:48)
[2019-06-26] MEDS: LIPASE/PROTEAS/AMYLAS 10/32/42 CAPSULE.DR. PO SCH ×3 (08:48→16:44)
[2019-06-26] MEDS: CYANOCOBALAMIN (VITAMIN B-12) 1,000 MCG TABLET. PO SCH (08:48)
[2019-06-26] MEDS: INSULIN LISPRO 300 UNITS/3 ML VIAL. SQ SCH ×3 (08:49→17:36)
[2019-06-26] MEDS: REPAGLINIDE 1 MG TABLET PO SCH (08:49)
[2019-06-26 15:29] VITALS: BP 113/57
[2019-06-26] MEDS: ATORVASTATIN CALCIUM 20 MG TABLET PO SCH (20:43)
[2019-06-26] MEDS: INSULIN GLARGINE SYRINGE. SQ SCH (20:43)
--- NOTE | 2019-06-26 21:38 | PDOC ---
Exam Note: Kristofer Note: Please also refer to the separate dictated note~for this date of service dictated separately.~Patient seen individually. Discussed the patient with Nursing staff reviewed the chart.~Reviewed interim history and current functioning. Reviewed vital signs,~Labs/ Radiology~and current medications noted below. Continue current treatment with the changes noted in the dictated addendum note Assessment: Vital Signs/I&O: Vital Signs Date Time Temp Pulse Resp B/P (MAP) Pulse Ox O2 Delivery O2 Flow Rate FiO2 06/26/19 19:21 66 113/57 06/26/19 15:29 98.0 16 99 06/20/19 14:30 Room Air I & O 06/25/19 06/25/19 06/26/19 15:00 23:00 07:00 Intake Total 960 ml 360 ml Balance 960 ml 360 ml Labs: Laboratory Tests Test 06/26/19 07:51 06/26/19 12:00 06/26/19 16:48 06/26/19 19:30 Glucose (Fingerstick) 93 mg/dL (70-99) 316 mg/dL (70-99) H 207 mg/dL (70-99) H 218 mg/dL (70-99) H Current Medications: I have reviewed the current psychotropics carefully including drug interactions. Risk benefit ratio favors no change other than as noted in my dictated progress note. Diagnosis: Problems: (1) Major neurocognitive disorder (2) Anxiety disorder (3) Dementia, vascular, with delusions (4) Medical clearance for psychiatric admission (5) Dementia, vascular, with depression (6) Dementia in Alzheimer's disease with delirium (7) Dementia in Alzheimer's disease with delusions (8) Impulse control disorder BESS MONIQUE MD Jun 26, 2019 21:38
[2019-06-27 05:49] VITALS: BP 138/66
[2019-06-27] MEDS: LEVOTHYROXINE 125 MCG TABLET PO SCH (06:00)
[2019-06-27] MEDS: INSULIN LISPRO 300 UNITS/3 ML VIAL. SQ SCH ×3 (08:59→17:40)
--- NOTE | 2019-06-27 10:36 | TX PLAN ---
Interdisciplinary Tx Plan Admission Information Jun 17, 2019 at 21:18 Legal Status (on Admission): Voluntary DPOA/Guardian Name: Dominique Quiñones Contact Verified Code Status: Full Code Allergies: Coded Allergies: No Known Drug Allergies (Unverified , 01/25/18) Diagnoses Primary Diagnosis: Major NeuroCognitive D/O, Vascular Dementia, Alzheimer's with Depression/BD Reasons for Admission: Aggressive, Depressed, Suicidal ideation, Isolating Problem in Patient's Words: Per daughter, pt has increased sadness and gets angry when receiving help. According to the pt, her daughter and "just brought me in the car and brought me here. They realized that I needed help." Additional Admission Comments: Per intake form, increased agitation and aggression, increased depression, not engaging in meaningful activities, withdrawn, mood lability, passive suicide ideation statements. Problems Active Problems: Aggressive bx (yelling and scratching staff) during AM hours withdrawn to self Increase in confusion Inactive Problems: Medication compliant Pt Strengths/Limitations Ability for [place]: Poor Cognitive Functioning/Ability: Poor Communication Skills/Ability: Fair Financial Resources: Fair Insight/Judgement: Poor Intellectual Ability: Fair Physical Health: Poor Social Skills: Poor Stability in Family: Good Stability in School/Work: Poor Verbal Skills: Fair Discharge Criteria Discharge Criteria: Able meet basic life need, Adequate arrangements @DC, Improved behavior, Improved mood/thought Preliminary Discharge Plan Preliminary DC Plan: Current Living Arrange. Special Precautions Fall Risk: Low Initial D/C Plan Pt may potentially discharge home with family. Identified Discharge Needs: Pt daughter is open to discharge options if recommended. She "does not necessarily want to put both parents in a home," however pt "is not getting better with dementia and diabetes" diagnosis. Per daughter, pt's is "declining quite a bit as well." Currently Utilized Resources Currently Utilized Resources/P: has a PCP with Dr. Hemphill Referrals Community Resources: May need placement or more mental health options. Identified Problems/Hx/Goals Objectives/Short-Term Goals Short Term Goals: Dec. Symp. Depression, Medication Stabilization, Promote Coping Skill, Other Short Term Goals in Patient's: "I just need help" Interventions/Frequency Staff Interventions/Frequency&: Psychiatrist to see pt at least 3x per week. Ceo Na to see pt at least 2x per week. Nursing to complete 15 minute checks daily. Encourage participation within group activities. 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 She had friends at work. After the day ended, she would go out and democrat. "[id number]." Education: Per pt, high school graduate at [employer]. "Probably a B student and enjoyed going to school." Community Follow-up maintain seeing Dr. Hemphill Community Provider/Family Inpu: "I just need her better, more compliant and happy" Treatment Plan Explained Patient/Induction Coordination Engineer had this treatment plan explained to him/her as indicated by the signature below and has been given the opportunity to ask questions and make suggestions: Date: Patient/Induction Coordination Engineer Signature: Status Update Update Pt is eating roughly 75% of meals and sleeping on average 8 hours per night. Pt is pleasant, calm and medication compliant. It appears that pt is being more interactive with staff and peers. Pt attends social work groups and most activities with moderate to full participation. At this time, the plan will be to discharge back home with the family. They have been encouraged to have pt in counseling services that would allow pt to participate in community resources. SW will continue to work with pt family and set up services for discharge on either Monday or Monday. CHIDI DAVIS Jun 27, 2019 10:36
[2019-06-27] MEDS: REPAGLINIDE 1 MG TABLET PO SCH (10:47)
[2019-06-27] MEDS: SERTRALINE 50 MG TABLET. PO SCH (10:47)
[2019-06-27] MEDS: amLODIPine BESYLATE 10 MG TABLET PO SCH (10:48)
[2019-06-27] MEDS: PRENATAL MULTIVITAMIN TABLET. PO SCH (10:48)
[2019-06-27] MEDS: ASPIRIN ENTERIC COATED 81 MG TABLET.DR. PO SCH (10:48)
[2019-06-27] MEDS: MULTIVITAMIN I-VITE TABLET. PO SCH (10:48)
[2019-06-27] MEDS: CARVEDILOL 6.25 MG TABLET PO SCH ×3 (10:48→20:35)
[2019-06-27] MEDS: MEMANTINE 10 MG TABLET. PO SCH ×2 (10:49→20:34)
[2019-06-27] MEDS: FERROUS SULFATE 325 MG TABLET. PO SCH (10:49)
[2019-06-27] MEDS: DONEPEZIL HCL 10 MG TABLET PO SCH (10:49)
[2019-06-27] MEDS: VITAMIN E. 400 UNIT CAPSULE. PO SCH (10:49)
[2019-06-27] MEDS: LIPASE/PROTEAS/AMYLAS 10/32/42 CAPSULE.DR. PO SCH ×3 (10:49→17:33)
[2019-06-27] MEDS: CHOLECALCIFEROL (VITAMIN D3) 1,000 UNIT TABLET PO SCH (10:50)
[2019-06-27] MEDS: PANTOPRAZOLE 40 MG TABLET. PO SCH (10:50)
[2019-06-27] MEDS: CYANOCOBALAMIN (VITAMIN B-12) 1,000 MCG TABLET. PO SCH (10:50)
[2019-06-27] MEDS: OMEGA-3 FATTY ACIDS/FISH OIL 1,000 MG CAPSULE. PO SCH (10:50)
--- NOTE | 2019-06-27 12:33 | PN ---
DATE: 06/25/2019 PSYCHIATRIC PROGRESS NOTE This late entry 06/25/2019 covers elements not covered in my initial note. SUBJECTIVE: I met with the patient evening of 06/25/2019. Per GARRETT Delatorre, the patient slept 8-3/4 hours previous night. She remains somewhat withdrawn, tired, but does come out for groups. She does have short term memory deficits. REVIEW OF SYSTEMS: No CV, , pulmonary, eye, ENT system symptoms on review. Reliability poor. MENTAL STATUS EXAM: Oriented to herself. Insight, judgment, recent memory is impaired, remote is better. Language function intact. Attention span short. Mood and affect appears improved. She was pleasant, smiling, very appreciative of my visit. LABORATORY DATA: Reviewed. IMPRESSION: Unchanged from initial note. PLAN: No change from initial note. MAN Kesha MONIQUE MD DR: KACEY/sabrina JOB#: [id number] / [id number]
[2019-06-27 15:46] VITALS: BP 133/60
[2019-06-27] MEDS: ATORVASTATIN CALCIUM 20 MG TABLET PO SCH (20:34)
[2019-06-27] MEDS: INSULIN GLARGINE SYRINGE. SQ SCH (20:43)
--- NOTE | 2019-06-27 21:18 | PDOC ---
Exam Note: Kristofer Note: Please also refer to the separate dictated note~for this date of service dictated separately.~Patient seen individually. Discussed the patient with Nursing staff reviewed the chart.~Reviewed interim history and current functioning. Reviewed vital signs,~Labs/ Radiology~and current medications noted below. Continue current treatment with the changes noted in the dictated addendum note Assessment: Vital Signs/I&O: Vital Signs Date Time Temp Pulse Resp B/P (MAP) Pulse Ox O2 Delivery O2 Flow Rate FiO2 06/27/19 20:35 66 133/60 06/27/19 15:46 97.4 16 96 Room Air I & O 06/26/19 06/26/19 06/27/19 15:00 23:00 07:00 Intake Total 840 ml 460 ml Balance 840 ml 460 ml Labs: Laboratory Tests Test 06/27/19 07:56 06/27/19 12:04 06/27/19 17:09 06/27/19 19:10 Glucose (Fingerstick) 138 mg/dL (70-99) H 294 mg/dL (70-99) H 212 mg/dL (70-99) H 224 mg/dL (70-99) H Current Medications: I have reviewed the current psychotropics carefully including drug interactions. Risk benefit ratio favors no change other than as noted in my dictated progress note. Diagnosis: Problems: (1) Major neurocognitive disorder (2) Anxiety disorder (3) Dementia, vascular, with delusions (4) Medical clearance for psychiatric admission (5) Dementia, vascular, with depression (6) Dementia in Alzheimer's disease with delirium (7) Dementia in Alzheimer's disease with delusions (8) Impulse control disorder BESS MONIQUE MD Jun 27, 2019 21:18
[2019-06-28] MEDS: LEVOTHYROXINE 125 MCG TABLET PO SCH (05:49)
[2019-06-28 06:11] VITALS: BP 122/65
[2019-06-28] MEDS: VITAMIN E. 400 UNIT CAPSULE. PO SCH (07:58)
[2019-06-28] MEDS: ASPIRIN ENTERIC COATED 81 MG TABLET.DR. PO SCH (07:58)
[2019-06-28] MEDS: PRENATAL MULTIVITAMIN TABLET. PO SCH (07:58)
[2019-06-28] MEDS: amLODIPine BESYLATE 10 MG TABLET PO SCH (07:59)
[2019-06-28] MEDS: PANTOPRAZOLE 40 MG TABLET. PO SCH (07:59)
[2019-06-28] MEDS: FERROUS SULFATE 325 MG TABLET. PO SCH (07:59)
[2019-06-28] MEDS: OMEGA-3 FATTY ACIDS/FISH OIL 1,000 MG CAPSULE. PO SCH (07:59)
[2019-06-28] MEDS: DONEPEZIL HCL 10 MG TABLET PO SCH (07:59)
[2019-06-28] MEDS: REPAGLINIDE 1 MG TABLET PO SCH (08:00)
[2019-06-28] MEDS: CHOLECALCIFEROL (VITAMIN D3) 1,000 UNIT TABLET PO SCH (08:00)
[2019-06-28] MEDS: CYANOCOBALAMIN (VITAMIN B-12) 1,000 MCG TABLET. PO SCH (08:00)
[2019-06-28] MEDS: SERTRALINE 50 MG TABLET. PO SCH (08:00)
[2019-06-28] MEDS: MEMANTINE 10 MG TABLET. PO SCH ×2 (08:00→20:12)
[2019-06-28] MEDS: INSULIN LISPRO 300 UNITS/3 ML VIAL. SQ SCH ×4 (08:00→17:32)
[2019-06-28] MEDS: CARVEDILOL 6.25 MG TABLET PO SCH ×3 (08:00→20:12)
[2019-06-28] MEDS: MULTIVITAMIN I-VITE TABLET. PO SCH (08:01)
[2019-06-28] MEDS: LIPASE/PROTEAS/AMYLAS 10/32/42 CAPSULE.DR. PO SCH ×3 (08:01→17:26)
--- NOTE | 2019-06-28 09:34 | PN ---
DATE: 06/26/2019 PSYCHIATRIC PROGRESS NOTE This late entry 06/26/2019 covers elements not covered in my initial note. SUBJECTIVE: I met with the patient in the evening. Per GARRETT Delatorre, the patient slept 7-1/2 hours previous night. She continues to be confused, forgetful with short-term memory deficits, but is coming out to the day room more often. REVIEW OF SYSTEMS: No CV, , pulmonary, eye, ENT system symptoms on review. Reliability poor. MENTAL STATUS EXAM: Oriented to herself and situation. Speech coherent, abstraction fair, computation impaired, language function intact, attention span short. Mood and affect is improved. She is quite verbal, smiling, pleasant as I met with her. LABORATORY DATA: Reviewed. IMPRESSION: Unchanged from initial note. PLAN: No change from initial note. MAN Kesha MONIQUE MD DR: KACEY/sabrina JOB#: [id number] / [id number]
--- NOTE | 2019-06-28 13:01 | PN ---
DATE: 06/27/2019 PSYCHIATRIC PROGRESS NOTE This late entry 06/27/2019 covers the elements not covered in my initial note. SUBJECTIVE: I met with the patient in the evening and staffed at a treatment team meeting with the entire team in the morning. The patient's appetite is 75%, sleeping average 8 hours, compliant with medications, pleasant, and calm. No suicidal ideation noted. She attended 5 groups this week per Angelia, activity therapy staff. I have been informed by social service staff that the family still wants to take her home rather than have her in a facility. Social service staff will look at a PACE program and other services to make sure if she goes home, this is successful. REVIEW OF SYSTEMS: No CV, , pulmonary, eye, ENT system symptoms on review. Reliability poor. MENTAL STATUS EXAM: Oriented to herself. Insight, judgment, recent and remote memory, attention, concentration, fund of knowledge poor, consistent with her diagnosis mentioned in my initial note. PLAN: No change from initial note. BESS MONIQUE MD DR: KACEY/sabrina JOB#: [id number] / [id number]
[2019-06-28 15:34] VITALS: BP 119/62
[2019-06-28] MEDS: ATORVASTATIN CALCIUM 20 MG TABLET PO SCH (20:12)
[2019-06-28] MEDS: INSULIN GLARGINE SYRINGE. SQ SCH (20:14)
--- NOTE | 2019-06-28 21:21 | PDOC ---
Exam Note: Kristofer Note: Please also refer to the separate dictated note~for this date of service dictated separately.~Patient seen individually. Discussed the patient with Nursing staff reviewed the chart.~Reviewed interim history and current functioning. Reviewed vital signs,~Labs/ Radiology~and current medications noted below. Continue current treatment with the changes noted in the dictated addendum note Assessment: Vital Signs/I&O: Vital Signs Date Time Temp Pulse Resp B/P (MAP) Pulse Ox O2 Delivery O2 Flow Rate FiO2 06/28/19 20:12 65 119/62 06/28/19 15:34 97.6 20 98 06/27/19 15:46 Room Air I & O 06/27/19 06/27/19 06/28/19 15:00 23:00 07:00 Intake Total 1080 ml 240 ml 240 ml Balance 1080 ml 240 ml 240 ml Labs: Laboratory Tests Test 06/28/19 07:25 06/28/19 12:00 06/28/19 16:28 06/28/19 19:09 Glucose (Fingerstick) 90 mg/dL (70-99) 252 mg/dL (70-99) H 183 mg/dL (70-99) H 179 mg/dL (70-99) H Current Medications: Meds: Current Medications Medications (Trade) Dose Ordered Sig/Jackie Route PRN Reason Start Time Stop Time Status Last Admin Dose Admin Insulin Human Lispro (HumaLOG) 8 units TIDAC SQ 06/28/19 16:30 06/28/19 17:31 I have reviewed the current psychotropics carefully including drug interactions. Risk benefit ratio favors no change other than as noted in my dictated progress note. Diagnosis: Problems: (1) Major neurocognitive disorder (2) Anxiety disorder (3) Dementia, vascular, with delusions (4) Medical clearance for psychiatric admission (5) Dementia, vascular, with depression (6) Dementia in Alzheimer's disease with delirium (7) Dementia in Alzheimer's disease with delusions (8) Impulse control disorder BESS MONIQUE MD Jun 28, 2019 21:21
[2019-06-29 05:11] VITALS: BP 162/69
[2019-06-29] MEDS: LEVOTHYROXINE 125 MCG TABLET PO SCH (05:23)
[2019-06-29] MEDS: INSULIN LISPRO 300 UNITS/3 ML VIAL. SQ SCH ×5 (08:00→16:30)
[2019-06-29] MEDS: VITAMIN E. 400 UNIT CAPSULE. PO SCH (08:12)
[2019-06-29] MEDS: LIPASE/PROTEAS/AMYLAS 10/32/42 CAPSULE.DR. PO SCH ×3 (08:12→17:41)
[2019-06-29] MEDS: FERROUS SULFATE 325 MG TABLET. PO SCH (08:12)
[2019-06-29] MEDS: ASPIRIN ENTERIC COATED 81 MG TABLET.DR. PO SCH (08:12)
[2019-06-29] MEDS: PANTOPRAZOLE 40 MG TABLET. PO SCH (08:12)
[2019-06-29] MEDS: OMEGA-3 FATTY ACIDS/FISH OIL 1,000 MG CAPSULE. PO SCH (08:12)
[2019-06-29] MEDS: PRENATAL MULTIVITAMIN TABLET. PO SCH (08:12)
[2019-06-29] MEDS: CARVEDILOL 6.25 MG TABLET PO SCH ×3 (08:13→19:45)
[2019-06-29] MEDS: CHOLECALCIFEROL (VITAMIN D3) 1,000 UNIT TABLET PO SCH (08:13)
[2019-06-29] MEDS: SERTRALINE 50 MG TABLET. PO SCH (08:13)
[2019-06-29] MEDS: DONEPEZIL HCL 10 MG TABLET PO SCH (08:13)
[2019-06-29] MEDS: MULTIVITAMIN I-VITE TABLET. PO SCH (08:13)
[2019-06-29] MEDS: REPAGLINIDE 1 MG TABLET PO SCH (08:13)
[2019-06-29] MEDS: CYANOCOBALAMIN (VITAMIN B-12) 1,000 MCG TABLET. PO SCH (08:14)
[2019-06-29] MEDS: MEMANTINE 10 MG TABLET. PO SCH ×2 (08:14→19:45)
[2019-06-29] MEDS: amLODIPine BESYLATE 10 MG TABLET PO SCH (08:14)
[2019-06-29 14:57] VITALS: BP 108/60
[2019-06-29] MEDS: ATORVASTATIN CALCIUM 20 MG TABLET PO SCH (19:45)
[2019-06-29] MEDS: INSULIN GLARGINE SYRINGE. SQ SCH (19:51)
--- NOTE | 2019-06-29 23:50 | PN ---
DATE: 06/29/2019 SUBJECTIVE: The patient was seen today, met with the staff, chart reviewed and also covering for Dr. Vera. The patient continues to be anxious, tense and also having periods of agitation. Staff reports no other major behavior problems. OBJECTIVE: VITAL SIGNS: Temperature 97.8, blood pressure 162/69, pulse 70, respiration 18, O2 sat 98%. Slept about 10 hours last night. The patient's appetite is fair. MEDICATIONS: The patient's current medications include Lipitor 40 mg daily. She is on insulin. The patient is also on Namenda 10 mg b.i.d., Zoloft 50 mg daily, Aricept 10 mg daily. The patient also on levothyroxine 125 mcg daily, Protonix 40 mg daily, amlodipine 10 mg daily, Coreg 6.25 mg t.i.d., vitamin B12 1000 mcg daily. The patient is not having any side effects. LABORATORY DATA: The patient's lab reviewed. No significant change except fluctuating blood sugar. The patient's BUN is 28, creatinine 1.4. Hemoglobin A1c 7.3. The patient also has hyperlipidemia. Staff denies of having any falls. The patient's behavior has been appropriate most of the time. ASSESSMENT: 1. Dementia, vascular type with depression and behavior problems. 2. Generalized anxiety disorder. PLAN: To continue with the current medications. LENGTH OF STAY: 3-5 days. NAOMIE PERKINS MD DR: LUANNE/sabrina JOB#: [id number] / [id number]
[2019-06-30 05:03] VITALS: BP 163/71
[2019-06-30] MEDS: LEVOTHYROXINE 125 MCG TABLET PO SCH (06:00)
[2019-06-30] MEDS: INSULIN LISPRO 300 UNITS/3 ML VIAL. SQ SCH ×3 (07:30→16:30)
[2019-06-30] MEDS: PRENATAL MULTIVITAMIN TABLET. PO SCH (08:20)
[2019-06-30] MEDS: PANTOPRAZOLE 40 MG TABLET. PO SCH (08:20)
[2019-06-30] MEDS: DONEPEZIL HCL 10 MG TABLET PO SCH (08:20)
[2019-06-30] MEDS: MEMANTINE 10 MG TABLET. PO SCH ×2 (08:20→19:44)
[2019-06-30] MEDS: CARVEDILOL 6.25 MG TABLET PO SCH ×3 (08:20→19:44)
[2019-06-30] MEDS: LIPASE/PROTEAS/AMYLAS 10/32/42 CAPSULE.DR. PO SCH ×3 (08:20→16:30)
[2019-06-30] MEDS: ASPIRIN ENTERIC COATED 81 MG TABLET.DR. PO SCH (08:20)
[2019-06-30] MEDS: MULTIVITAMIN I-VITE TABLET. PO SCH (08:20)
[2019-06-30] MEDS: VITAMIN E. 400 UNIT CAPSULE. PO SCH (08:20)
[2019-06-30] MEDS: FERROUS SULFATE 325 MG TABLET. PO SCH (08:20)
[2019-06-30] MEDS: SERTRALINE 50 MG TABLET. PO SCH (08:21)
[2019-06-30] MEDS: CYANOCOBALAMIN (VITAMIN B-12) 1,000 MCG TABLET. PO SCH (08:21)
[2019-06-30] MEDS: REPAGLINIDE 1 MG TABLET PO SCH (08:21)
[2019-06-30] MEDS: OMEGA-3 FATTY ACIDS/FISH OIL 1,000 MG CAPSULE. PO SCH (08:21)
[2019-06-30] MEDS: amLODIPine BESYLATE 10 MG TABLET PO SCH (08:21)
[2019-06-30] MEDS: CHOLECALCIFEROL (VITAMIN D3) 1,000 UNIT TABLET PO SCH (08:21)
[2019-06-30 09:55] LABS: BASO % 0 % (0-3); EOS # 0.1 x10^3/uL (0.0-0.7); EOS % 1 % (0-3); HEMATOCRIT 41.7 % (36.0-47.0); HEMOGLOBIN 13.6 g/dL (12.0-15.5); LYMPH # 1.5 x10^3/uL (1.0-4.8); LYMPH % 20 % (24-48); MEAN CORPUSCULAR HEMOGLOBIN 31 pg (25-35); MEAN CORPUSCULAR HGB CONC 33 g/dL (31-37); MEAN CORPUSCULAR VOLUME 95 fL (79-100); MONO # 0.7 x10^3/uL (0.0-1.1); MONO % 10 % (0-9); NEUT % 68 % (31-73); PLATELET COUNT 199 x10^3/uL (140-400); RED BLOOD COUNT 4.38 x10^6/uL (3.50-5.40); RED CELL DISTRIBUTION WIDTH 13.8 % (11.5-14.5); WHITE BLOOD COUNT 7.3 x10^3/uL (4.0-11.0)
[2019-06-30 10:09] LABS: ALBUMIN 2.9 g/dL (3.4-5.0); ALBUMIN/GLOBULIN RATIO 0.8 (1.0-1.7); CALCIUM 8.8 mg/dL (8.5-10.1); CREATININE 1.5 mg/dL (0.6-1.0); POTASSIUM 4.1 mmol/L (3.5-5.1); TOTAL BILIRUBIN 0.4 mg/dL (0.2-1.0); TOTAL PROTEIN 6.5 g/dL (6.4-8.2)
--- NOTE | 2019-06-30 11:12 | PN ---
DATE: 06/30/2019 SUBJECTIVE: The patient was seen today, met with the staff, chart reviewed and also covering for Dr. Vera. The patient apparently has been sleeping most of the day today and staff reports no major behavior problems. OBSERVATION: VITAL SIGNS: Temperature 98.3, blood pressure 163/71, pulse 70, respiration 18, O2 sat 95%. GENERAL: Slept about 8 hours last night. The patient's appetite is fair. The patient is not presenting with any physical complaints. No falls. CURRENT MEDICATIONS: Include Namenda 10 mg b.i.d., Zoloft 50 mg daily, Aricept 10 mg daily. LABORATORY DATA: The patient's lab reviewed. ASSESSMENT: 1. Dementia, vascular type, with depression and behavior problems. 2. Generalized anxiety disorder. PLAN: To continue with the current treatment plan. LENGTH OF STAY: 3 to 5 days. NAOMIE PERKINS MD DR: LUANNE/sabrina JOB#: [id number] / [id number]
[2019-06-30 15:17] VITALS: BP 111/62
[2019-06-30] MEDS: ATORVASTATIN CALCIUM 20 MG TABLET PO SCH (19:44)
[2019-06-30] MEDS: INSULIN GLARGINE SYRINGE. SQ SCH (19:46)
[2019-07-01] MEDS: LEVOTHYROXINE 125 MCG TABLET PO SCH (05:28)
[2019-07-01 06:37] VITALS: BP 163/65
[2019-07-01] MEDS: INSULIN LISPRO 300 UNITS/3 ML VIAL. SQ SCH ×3 (07:30→17:07)
[2019-07-01] MEDS: SERTRALINE 50 MG TABLET. PO SCH (08:23)
[2019-07-01] MEDS: REPAGLINIDE 1 MG TABLET PO SCH (08:23)
[2019-07-01] MEDS: FERROUS SULFATE 325 MG TABLET. PO SCH (08:24)
[2019-07-01] MEDS: PRENATAL MULTIVITAMIN TABLET. PO SCH (08:24)
[2019-07-01] MEDS: LIPASE/PROTEAS/AMYLAS 10/32/42 CAPSULE.DR. PO SCH ×3 (08:24→17:05)
[2019-07-01] MEDS: OMEGA-3 FATTY ACIDS/FISH OIL 1,000 MG CAPSULE. PO SCH (08:25)
[2019-07-01] MEDS: CARVEDILOL 6.25 MG TABLET PO SCH ×3 (08:25→21:20)
[2019-07-01] MEDS: ASPIRIN ENTERIC COATED 81 MG TABLET.DR. PO SCH (08:25)
[2019-07-01] MEDS: MEMANTINE 10 MG TABLET. PO SCH ×2 (08:25→21:20)
[2019-07-01] MEDS: CHOLECALCIFEROL (VITAMIN D3) 1,000 UNIT TABLET PO SCH (08:25)
[2019-07-01] MEDS: DONEPEZIL HCL 10 MG TABLET PO SCH (08:25)
[2019-07-01] MEDS: MULTIVITAMIN I-VITE TABLET. PO SCH (08:25)
[2019-07-01] MEDS: VITAMIN E. 400 UNIT CAPSULE. PO SCH (08:25)
[2019-07-01] MEDS: PANTOPRAZOLE 40 MG TABLET. PO SCH (08:25)
[2019-07-01] MEDS: CYANOCOBALAMIN (VITAMIN B-12) 1,000 MCG TABLET. PO SCH (08:26)
[2019-07-01] MEDS: amLODIPine BESYLATE 10 MG TABLET PO SCH (08:26)
[2019-07-01 15:23] VITALS: BP 128/54
--- NOTE | 2019-07-01 21:17 | PDOC ---
Exam Note: Kristofer Note: Please also refer to the separate dictated note~for this date of service dictated separately.~Patient seen individually. Discussed the patient with Nursing staff reviewed the chart.~Reviewed interim history and current functioning. Reviewed vital signs,~Labs/ Radiology~and current medications noted below. Continue current treatment with the changes noted in the dictated addendum note Assessment: Vital Signs/I&O: Vital Signs Date Time Temp Pulse Resp B/P (MAP) Pulse Ox O2 Delivery O2 Flow Rate FiO2 07/01/19 15:23 98.0 68 18 128/54 (78) 97 06/29/19 21:00 Room Air I & O 06/30/19 06/30/19 07/01/19 15:00 23:00 07:00 Intake Total 600 ml 600 ml Balance 600 ml 600 ml Labs: Laboratory Tests Test 07/01/19 07:57 07/01/19 12:11 07/01/19 16:50 07/01/19 19:04 Glucose (Fingerstick) 69 mg/dL (70-99) L 170 mg/dL (70-99) H 153 mg/dL (70-99) H 111 mg/dL (70-99) H Current Medications: I have reviewed the current psychotropics carefully including drug interactions. Risk benefit ratio favors no change other than as noted in my dictated progress note. Diagnosis: Problems: (1) Major neurocognitive disorder (2) Anxiety disorder (3) Dementia, vascular, with delusions (4) Dementia, vascular, with depression (5) Dementia in Alzheimer's disease with delirium (6) Dementia in Alzheimer's disease with delusions (7) Impulse control disorder BESS MONIQUE MD Jul 01, 2019 21:17
[2019-07-01] MEDS: ATORVASTATIN CALCIUM 20 MG TABLET PO SCH (21:20)
[2019-07-01] MEDS: INSULIN GLARGINE SYRINGE. SQ SCH (21:21)
[2019-07-01] MEDS ORDERED: TRAM50TA PO (23:10)
[2019-07-01] MEDS ORDERED: ACET325T21 PO (23:11)
[2019-07-01] MEDS ORDERED: SERT50TA PO (23:12)
[2019-07-01] MEDS ORDERED: INSU100V38 SQ (23:16)
--- NOTE | 2019-07-02 04:51 | PN ---
DATE: 06/28/2019 PSYCHIATRIC PROGRESS NOTE This late entry 06/28/2019 covers the elements not covered in my initial note. SUBJECTIVE: Per Peter RN, the patient slept 7-1/4 hours previous night. She continues to have short-term memory deficits, but otherwise mood appears stable. She is pleasant, verbal, and cooperative. REVIEW OF SYSTEMS: No CV, , pulmonary, eye system symptoms on review. Reliability poor. Ambulation impaired with walker. MENTAL STATUS EXAM: Oriented to herself, at times situation. Speech is coherent, abstraction fair, computation impaired, language function intact, attention span short. Mood and affect is improved. LABORATORY DATA: Reviewed. IMPRESSION: Unchanged from initial note. PLAN: No change from initial note. MAN Kesha MONIQUE MD DR: KACEY/sabrina JOB#: [id number] / [id number]
[2019-07-02 04:56] VITALS: BP 155/69
[2019-07-02] MEDS: INSULIN LISPRO 300 UNITS/3 ML VIAL. SQ SCH (07:30)
[2019-07-02] MEDS: PRENATAL MULTIVITAMIN TABLET. PO SCH (08:26)
[2019-07-02] MEDS: LEVOTHYROXINE 125 MCG TABLET PO SCH (08:26)
[2019-07-02] MEDS: SERTRALINE 50 MG TABLET. PO SCH (08:26)
[2019-07-02] MEDS: PANTOPRAZOLE 40 MG TABLET. PO SCH (08:26)
[2019-07-02] MEDS: REPAGLINIDE 1 MG TABLET PO SCH (08:26)
[2019-07-02] MEDS: LIPASE/PROTEAS/AMYLAS 10/32/42 CAPSULE.DR. PO SCH (08:27)
[2019-07-02] MEDS: MULTIVITAMIN I-VITE TABLET. PO SCH (08:27)
[2019-07-02] MEDS: MEMANTINE 10 MG TABLET. PO SCH (08:27)
[2019-07-02 08:28] VITALS: BP 155/69
[2019-07-02] MEDS: CYANOCOBALAMIN (VITAMIN B-12) 1,000 MCG TABLET. PO SCH (08:28)
[2019-07-02] MEDS: ASPIRIN ENTERIC COATED 81 MG TABLET.DR. PO SCH (08:28)
[2019-07-02] MEDS: CARVEDILOL 6.25 MG TABLET PO SCH (08:28)
[2019-07-02] MEDS: VITAMIN E. 400 UNIT CAPSULE. PO SCH (08:28)
[2019-07-02] MEDS: FERROUS SULFATE 325 MG TABLET. PO SCH (08:28)
[2019-07-02] MEDS: amLODIPine BESYLATE 10 MG TABLET PO SCH (08:28)
[2019-07-02] MEDS: DONEPEZIL HCL 10 MG TABLET PO SCH (08:29)
[2019-07-02] MEDS: CHOLECALCIFEROL (VITAMIN D3) 1,000 UNIT TABLET PO SCH (08:29)
[2019-07-02] MEDS: OMEGA-3 FATTY ACIDS/FISH OIL 1,000 MG CAPSULE. PO SCH (08:29)
--- NOTE | 2019-07-02 21:53 | PDOC ---
Exam Note: Kristofer Note: Please also refer to the separate dictated note~for this date of service dictated separately.~Patient seen individually. Discussed the patient with Nursing staff reviewed the chart.~Reviewed interim history and current functioning. Reviewed vital signs,~Labs/ Radiology~and current medications noted below. Continue current treatment with the changes noted in the dictated addendum note Assessment: Vital Signs/I&O: Vital Signs Date Time Temp Pulse Resp B/P (MAP) Pulse Ox O2 Delivery O2 Flow Rate FiO2 07/02/19 08:28 69 155/69 07/02/19 04:56 97.2 16 93 06/29/19 21:00 Room Air I & O 07/01/19 07/01/19 07/02/19 15:00 23:00 07:00 Intake Total 840 ml 240 ml Balance 840 ml 240 ml Labs: Laboratory Tests Test 07/02/19 07:48 Glucose (Fingerstick) 68 mg/dL (70-99) L Current Medications: I have reviewed the current psychotropics carefully including drug interactions. Risk benefit ratio favors no change other than as noted in my dictated progress note. Diagnosis: Problems: (1) Major neurocognitive disorder (2) Anxiety disorder (3) Dementia, vascular, with delusions (4) Medical clearance for psychiatric admission (5) Dementia, vascular, with depression (6) Dementia in Alzheimer's disease with delirium (7) Dementia in Alzheimer's disease with delusions (8) Impulse control disorder BESS MONIQUE MD Jul 02, 2019 21:52
--- NOTE | 2019-07-02 22:19 | PN ---
DATE: 07/01/2019 PSYCHIATRIC PROGRESS NOTE This late entry 07/01/2019 covers the elements not covered in my initial note. SUBJECTIVE: I met with the patient in the evening. The patient slept 7-1/2 hours previous night. She has been tired during the day, but otherwise cooperative. REVIEW OF SYSTEMS: No CV, , pulmonary, eye, ENT system symptoms on review. Reliability is poor. MENTAL STATUS EXAM: Oriented to herself and situation. Speech has some latency, coherent. She is pleasant, verbal, smiling as I met with her with short-term memory deficits. REVIEW OF SYSTEMS: No CV, , pulmonary, eye system symptoms on review. MENTAL STATUS EXAM: Oriented to herself, at times situation. Speech coherent, abstraction fair, computation impaired, language function intact, attention span short. Mood and affect somewhat withdrawn. LABORATORY DATA: Reviewed. IMPRESSION: Unchanged from initial note. PLAN: No change from initial note. BESS MONIQUE MD DR: KACEY/sabrina JOB#: [id number] / [id number]
--- NOTE | 2019-07-03 13:03 | DS ---
DATE OF DISCHARGE: 07/02/2019 PSYCHIATRIC DISCHARGE SUMMARY This late entry 07/02/2019 covers elements not covered in my initial note. REASON FOR ADMISSION: Please refer to the admission history for details. Briefly, the patient is an 83-year-old female who presented to [facility] Emergency Room from home on account of increasing confusion, worsening agitation, aggression, appearing depressed, not engaging in meaningful activities. She was withdrawn with marked mood lability, making suicidal statements. The patient had failed outpatient psychiatric interventions. Behaviors were deemed dangerous with suicidal ideation and worsening confusion. She was unable to be cared for at home where she lived with family and was referred for inpatient psychiatric stabilization. SIGNIFICANT FINDINGS AND CLINICAL COURSE: Following admission, the patient was seen daily individually by myself from a psychiatric standpoint, medical followup with Dr. Wren. The patient was quite confused, anxious, restless. Adjustments were made in her psychotropics and she seemed to respond to a combination of Zoloft 50 mg a day, Namenda 10 mg b.i.d., Aricept 10 mg a day. Gradually her mood appeared to improve. She was less anxious, restless, more pleasant, cooperative, verbal, smiling as I met with her. REVIEW OF SYSTEMS: Prior to discharge on 07/02/2019, no CV, , pulmonary, eye, ENT system symptoms on review. Reliability poor. MENTAL STATUS EXAM: Oriented to herself. Insight, judgment, recent and remote memory, attention, concentration, fund of knowledge poor, consistent with her diagnosis. CONDITION AT DISCHARGE: Improved. FINAL DIAGNOSES: Major neurocognitive disorder, Alzheimer, vascular with delusion, depression, behavioral disturbance; anxiety disorder, unspecified; impulse control disorder, unspecified. Rest unchanged from admission. DISCHARGE MEDICATIONS: Please refer to the MRAD. DISCHARGE INSTRUCTIONS: Outpatient psychiatric and medical followup as arranged prior to discharge. Time for discharge day management greater than 30 minutes. BESS MONIQUE MD DR: KACEY/sabrina JOB#: [id number] / [id number]
== END 2019-07-02 10:45 | disposition home health service (06) | DRG 57 ==
LOC: ER 13:05 → GEROPSY 21:18
PROVIDERS: ADMIT Psychiatry & Neurology Psychiatry; ATTEND Psychiatry & Neurology Psychiatry
DX: G30.9 Alzheimer's disease, unspecified (principal); N39.0 Urinary tract infection, site not specified; R45.851 Suicidal ideations; E03.9 Hypothyroidism, unspecified; E11.9 Type 2 diabetes mellitus without complications; E78.00 Pure hypercholesterolemia, unspecified; E78.5 Hyperlipidemia, unspecified; E86.0 Dehydration; F01.50 Vascular dementia, unspecified severity, without behavioral disturbance, psychotic disturbance, mood disturbance, and anxiety; F02.80 Dementia in other diseases classified elsewhere, unspecified severity, without behavioral disturbance, psychotic disturbance, mood disturbance, and anxiety; F32.9 Major depressive disorder, single episode, unspecified; K21.9 Gastro-esophageal reflux disease without esophagitis; F41.1 Generalized anxiety disorder; F63.9 Impulse disorder, unspecified; I10 Essential (primary) hypertension; N28.9 Disorder of kidney and ureter, unspecified; Z02.89 Encounter for other administrative examinations; Z79.899 Other long term (current) drug therapy; Z90.12 Acquired absence of left breast and nipple; Z90.49 Acquired absence of other specified parts of digestive tract
CPT/HCPCS: 36415; 70450; 71045; 72125; 80053; 80061; 80307; 81001; 82306; 82607; 82947; 83036; 83540; 83550; 83735; 84436; 84443; 84480; 85007; 85025; 85651; 86592; 87086; 87186; 93005; G0480; J1815; 99285-25

== ENCOUNTER 2021-02-09 10:18 | Emergency (ER) | payer MEDICARE, OTHER ==
[~2021-02-09] VITALS: Ht 162.6 cm; Wt 45.8 kg
[~2021-02-09 10:18] MED LIST changes: +ACET325T21 PO; +ASCO100019 PO; -ASCO10002 PO; +DICL50TA4 PO; +INSU100V38 SQ; +LIPA1CAP4 PO; +MEMA10TA PO; -PANT40TA5 PO; +PANT40TA6 PO; +SENN-182 PO; -SENN-80 PO; +SERT50TA PO; +TRAM50TA PO
[2021-02-09 10:22] VITALS: BP 142/58
--- NOTE | 2021-02-09 10:36 | PHYS DOC ---
Past History Past Medical History: Dementia, Depression, Diabetes, GERD, High Cholesterol, Hypertension, Hypothyroid (DANIEL BAEZ APRN) Past Surgical History: Appendectomy, Cholecystectomy (DANIEL BAEZ APRN) Alcohol Use: None Drug Use: None (DANIEL BAEZ APRN) General Adult EDM: Chief Complaint: MECHANICAL FALL HPI: HPI: Patient is an 85-year-old female who is on hospice brought in via EMS following a fall. Patient had an unwitnessed fall about 1 hour prior to EMS arrival. Family states that she hit her head on a piece of furniture. Unknown loss of consciousness. No blood thinner use. Patient denies any current pain. Per hospice no imaging can be performed the patient can only be seen for laceration repair or she will forfeit her hospice. Tetanus UTD. Patient currently in a c-c ollar placed by EMS. History of dementia, hypertension, hypothyroidism, MA. (DANIEL BAEZ APRN) Review of Systems: Review of Systems: 14 body systems of the review of systems have been reviewed. See HPI for pertinent positive and negative responses, otherwise all other systems are negative, nonpertinent or noncontributory (DANIEL BAEZ APRN) Allergies: Allergies: Allergies Coded Allergies Type Severity Reaction Last Updated Verified No Known Drug Allergies 01/25/18 No (DANIEL BAEZ APRN) Physical Exam: PE: Constitutional: Well developed, well nourished, no acute distress, non-toxic appearance. [] HENT: Normocephalic, bilateral external ears normal, oropharynx moist, no oral exudates, nose normal, 2.5 cm hematoma with ecchymosis noted to right islam, 1.5 cm laceration noted to right side of head. [] Eyes: PERRL, EOMI, conjunctiva normal, no discharge. [] Neck: Normal range of motion, no bony cervical tenderness,, no crepitus supple, no stridor. [] Cardiovascular:Heart rate regular rhythm, no murmur [] Lungs & Thorax: Bilateral breath sounds clear to auscultation [] Abdomen: Bowel sounds normal, soft, no tenderness, no masses, no pulsatile masses. [] Skin: Warm, dry, no erythema, no rash. [] Back: No bony spinal tenderness with palpation, no crepitus Extremities: No tenderness, no hip tenderness with palpation, no cyanosis, no shortening or rotation of lower extremities, no clubbing, ROM intact, no edema. [] Neurologic: Alert and oriented X person, normal motor function, normal sensory function, no focal deficits noted. [] Psychologic: Affect normal, judgement normal, mood normal. [] (DANIEL BAEZ APRN) EKG: EKG: [] (DANIEL BAEZ APRN) Radiology/Procedures: Radiology/Procedures: [] (DANIEL BAEZ APRN) Heart Score: C/O Chest Pain: No Risk Factors: Risk Factors: DM, Current or recent (<one month) smoker, HTN, HLP, family history of CAD, obesity. Risk Scores: Score 0 - 3: 2.5% MACE over next 6 weeks - Discharge Home Score 4 - 6: 20.3% MACE over next 6 weeks - Admit for Clinical Observation Score 7 - 10: 72.7% MACE over next 6 weeks - Early Invasive Strategies (DANIEL BAEZ APRN) Course & Med Decision Making: Course & Med Decision Making Pertinent Labs and Imaging studies reviewed. (See chart for details) [] Patient is an 85-year-old female on hospice who had a fall today at home. Patient did hit the side of her head on a piece of furniture. The fall was unwitnessed. Per hospice and family, imaging cannot be performed in the ER and patient can only receive laceration repair or she will forfeit hospice. C- collar removed. Patient has a 1.5 cm laceration to right side of head, laceration would be appropriately prepared with Dermabond and Steri-Strips. Laceration cleansed with sterile saline. Laceration repaired with Dermabond and 2 Steri-Strips placed. Patient tolerated procedure. Laceration is closed and no active bleeding. Family is at bedside discussing setting up 24/ hospice care. I discussed with patient all findings as well as the need to follow-up with PCP for further evaluation and treatment or return to the ER if any new or worsening symptoms. Strict return precautions were also discussed at length. Patient voiced understanding and agreement with the plan. Patient is hemodynamically stable at the time of disposition. (DANIEL BAEZ APRN) Course & Med Decision Making I was the Attending physician on the above date of service of this patient. This patient was evaluated, examined, treated, and dispositioned from the emergency department by the mid-level practitioner. Although I was working at the time , no assistance was requested. Electronically signed, Alexy Jones DO (ALEXY JONES DO) Evie Disclaimer: Evie Disclaimer: This electronic medical record was generated, in whole or in part, using a voice recognition dictation system. (DANIEL BAEZ PLATE GLASS INSTALLER) Departure Departure: Impression: Primary Impression: Laceration Additional Impression: Fall Qualified Codes: W19.XXXA - Unspecified fall, initial encounter Disposition: HOME / SELF CARE / HOMELESS Condition: GOOD Referrals: BOBY WYATT MD (PCP) Patient Instructions: Fall Prevention and Home Safety, Laceration Care, Adult Additional Instructions: You were seen in the ER today for ED follow-up and a laceration. The laceration was repaired with Dermabond and Steri-Strips. You can take Tylenol for any p ain and apply ice to the area. Keep the laceration clean and dry. Do not get it wet for 48 hours. Monitor for any signs of infection surrounding the laceration including redness, warmth, swelling or drainage. Please follow-up with your primary care provider or hospice nurse tomorrow regarding your ER visit. As we discussed, 19/12 hospice care may be appropriate for patient at t his time. Please return to the ER for any additional falls, confusion, or any new or worsening concerns. EMERGENCY DEPARTMENT GENERAL DISCHARGE INSTRUCTIONS Thank you for coming to [facility] (ED) today and trusting us with you care. We trust that you had a positivie experience in our Emergency Department. If you wish to speak to the department management, you may call the director at [phone]. YOUR FOLLOW UP INSTRUCTIONS ARE FOLLOWS: 1. Do you have a private Doctor? If you do not have a private doctor, please ask for a resource list of physicians or clinics that may be able to assist you with follow up care. 2. The Emergency Physician has interpreted your x-rays. The X-Ray specialist will also review them. If there is a change in the findings, you will be notified in 48 hours when at all possible. 3. A lab test or culture has been done, your results will be reviewed and you will be notified if you need a change in treatment. ADDITIONAL INSTRUCTIONS AND INFORMATION: 1. Your care today has been supervised by a physician who is specially trained in emergency care. Many problems require more than one evaluation for a complete diagnosis and treatment. We recommend that you schedule your follow up appointment as recommended to ensure complete treatment of you illness or injury. If you are unable to obtain follow up care and continue to have a problem, or if your condition worsens, we recommend that you return to the ED. 2. We are not able to safely determine your condition over the phone nor are we able to give sound medical advice over the phone. For these safety reasons, if you call for medical advice we will ask you to come to the ED for further evaluation. 3. If you have any questions regarding these discharge instructions please call the ED at [phone]. SAFETY INFORMATION: In the interest of safety, wellness, and injury prevention; we encourage you to wear your sealbelt, if you smoke; quite smoking, and we encourage family to use a prote ctive helmet for bicycling and other sporting events that present an increased risk for head injury. IF YOUR SYMPTOMS WORSEN OR NEW SYMPTOMS DEVELOP, OR YOU HAVE CONCERNS ABOUT YOUR CONDITION; OR IF YOUR CONDITION WORSENS WHILE YOU ARE WAITING FOR YOUR FOLLOW UP APPOINTMENT; EITHER CONTACT YOUR PRIMARY CARE DOCTOR, THE PHYSICIAN WHOSE NAME AND NUMBER YOU WERE GIVEN, OR RETURN TO THE ED IMMEDIATELY. DANIEL BAEZ APRN Feb 09, 2021 10:36 ALEXY JONES DO Feb 10, 2021 06:17
== END 2021-02-09 11:00 | disposition home or self-care (01) ==
LOC: ER 10:18
DX: S01.81XA Laceration without foreign body of other part of head, initial encounter (principal); F03.90 Unspecified dementia, unspecified severity, without behavioral disturbance, psychotic disturbance, mood disturbance, and anxiety; E11.9 Type 2 diabetes mellitus without complications; K21.9 Gastro-esophageal reflux disease without esophagitis; E78.00 Pure hypercholesterolemia, unspecified; I10 Essential (primary) hypertension; E03.9 Hypothyroidism, unspecified; I25.2 Old myocardial infarction; W18.39XA Other fall on same level, initial encounter; Y93.89 Activity, other specified; Y92.89 Other specified places as the place of occurrence of the external cause; Y99.8 Other external cause status
CPT/HCPCS: 12011; 99284